=== PATIENT | male | born 1965 | race Caucasian/White ===

== ENCOUNTER → 2021-02-06 08:32 | Outpatient (CLI) | payer BC, SELFPAY ==
--- NOTE | 2021-02-06 08:33 | DI.RAD.S_ITS ---
PROCEDURE: XR LUMBAR SPINE MIN 4V INDICATIONS: dorsalgia TECHNIQUE: 5 views of the lumbar spine acquired, including flexion and extension views. COMPARISON: [facility], MR, L-SPINE WITHOUT CONTRAST, 10/12/2008, 12:06. FINDINGS: Bones: 5 nonrib-bearing vertebrae are present. Trace multilevel retrolisthesis. Multilevel disc degeneration, most notably and moderate at the L5-S1 level. Mild L4-L5 and L5-S1 facet joint arthropathy.. No vertebral body compression fractures. No suspicious bony lesions. Soft tissues: Overlying bowel gas pattern is normal. No suspicious soft tissue calcifications. IMPRESSION: Multilevel spondylosis. Dictated by: Jose E Min RRTriston Interpreted: Eugenio Crawford MD on 02/06/2021 at 10:23 Transcribed by: ANNI on 02/06/2021 at 10:24 Approved by: Eugenio Crawford M.D. on 02/06/2021 at 15:41
== END ==
PROVIDERS: PCP Internal Medicine; Referring Provider Physical Medicine & Rehabilitation; Visit Provider Physical Medicine & Rehabilitation
DX: M54.9 Dorsalgia, unspecified (principal); M47.816 Spondylosis without myelopathy or radiculopathy, lumbar region; M47.817 Spondylosis without myelopathy or radiculopathy, lumbosacral region
CPT/HCPCS: 72110

== ENCOUNTER → 2021-02-13 09:20 | Outpatient (CLI) | payer BC, SELFPAY ==
--- NOTE | 2021-02-13 09:21 | DI.MRI.S_ITS ---
PROCEDURE: MR LUMBAR SPINE WO CON INDICATIONS: Right L5 radiculopathy post laminectomy syndrome TECHNIQUE: Noncontrast sagittal T1 spin echo and T2 fast echo, sagittal STIR, axial T1 and T2 fast spin echo through the lumbar spine. In cases with scoliosis, additional coronal T2 fast spin echo may be performed. COMPARISON: [facility], CR, XR LUMBAR SPINE MIN 4V, 02/06/2021, 8:30. [facility], MR, L-SPINE WITHOUT CONTRAST, 10/12/2008, 12:06. FINDINGS: Image quality: Excellent. Alignment and Curvature: There is normal bony alignment. Bone Marrow: Reactive endplate changes noted adjacent to the L2-L3 disc. No acute vertebral body compression fractures. Spinal Cord: Conus medullaris terminates at the L1 level. Visualized cord demonstrates normal signal and size. Paraspinous Soft Tissues: No paravertebral masses. T12-L1: Loss of disc signal and height. Mild, diffuse disc bulge. Mild narrowing of the central canal. No neural foraminal narrowing. Fissure noted in the posterior annulus. L1-L2: Normal appearance. L2-L3: Loss of disc signal and height. Moderate, diffuse disc bulge. Mild narrowing of the central canal. Mild bilateral neural foraminal narrowing. No neural compression. L3-L4: Loss of disc signal and slight loss of disc height. Mild to moderate diffuse disc bulge. Mild narrowing of the central canal. Mild bilateral neural foraminal narrowing. No neural compression. L4-L5: Disc has a normal appearance. Mild bilateral facet hypertrophy. No central stenosis. No neural foraminal narrowing. No neural compression. L5-S1: Status post right laminotomy. Loss of disc signal. Mild, diffuse disc bulge. Mild bilateral facet hypertrophy. No central stenosis. Mild bilateral neural foraminal narrowing. Fissure noted in the posterior annulus. No neural compression. IMPRESSION: 1. Multilevel degenerative disc disease. 2. Multilevel facet arthropathy. 3. No severe central canal narrowing. 4. No severe neural foraminal narrowing. 5. No neural compression. 6. T12-L1 and L5-S1 disc annulus fissures. 7. Postsurgical changes. Dictated by: Cassie Jesus MD, PhD on 02/13/2021 at 13:57 Approved by: Cassie Jesus MD, PhD on 02/13/2021 at 14:01
== END ==
PROVIDERS: PCP Internal Medicine; Referring Provider Physical Medicine & Rehabilitation; Visit Provider Physical Medicine & Rehabilitation
DX: M96.1 Postlaminectomy syndrome, not elsewhere classified (principal); M51.16 Intervertebral disc disorders with radiculopathy, lumbar region; M51.17 Intervertebral disc disorders with radiculopathy, lumbosacral region; M47.26 Other spondylosis with radiculopathy, lumbar region; M47.27 Other spondylosis with radiculopathy, lumbosacral region
CPT/HCPCS: 72148

== ENCOUNTER → 2021-03-27 11:08 | Outpatient (CLI) | payer BC, SELFPAY ==
[2021-03-27 13:32] LABS: COVID19 -Nasal RAPID Negative (Negative)
== END ==
PROVIDERS: PCP Internal Medicine; Visit Provider Physical Medicine & Rehabilitation
DX: Z20.822 Contact with and (suspected) exposure to COVID-19 (principal)
CPT/HCPCS: 87635; C9803

== ENCOUNTER 2021-03-28 09:06 | Outpatient (CLI) | payer BC, SELFPAY ==
[2021-03-28] VITALS (8 sets, daily range): BP systolic 109–125; BP diastolic 60–75; PULSE 83–95; RESP 15–24; TEMP 37.1; O2SAT 97–99
--- NOTE | 2021-03-28 09:07 | DI.RAD.S_ITS ---
PROCEDURE: PAIN L/S TRANSFORAMINAL INJECT INDICATIONS: SPONDYLOSIS COMPARISON: None. FINDINGS: Fluoroscopic spot filming was performed to verify placement of spinal needles at the right L5-S1 level(s), as labeled on the films. Appropriate location(s) of the needle tip(s) was confirmed by injection of iodinated contrast. IMPRESSION: Right L5-S1 needle placement and contrast injection. Dictated by: Pilar Nieves M.D. on 03/28/2021 at 11:28 Approved by: Pilar Nieves M.D. on 03/28/2021 at 11:28
[2021-03-28] MEDS: BETAMETHASONE 30 MG/5 ML MDV 12 MG INJ (10:10)
[2021-03-28] MEDS: MIDAZOLAM 5 MG/5 ML VIAL IV (10:10)
[2021-03-28] MEDS: fentaNYL 100 MCG/2 ML INJ 50 MCG IV (10:10)
[2021-03-28] MEDS: IOPAMIDOL 15 ML VIAL 3 ML INJ (10:16)
[2021-03-28] MEDS: DEXAMETHASONE 10 MG/ML VIAL 20 MG INJ (10:16)
[2021-03-28] MEDS: BUPIVACAINE 0.25% (PF) VIAL 5 ML SUBCUT (10:17)
--- NOTE | 2021-03-28 10:26 | P.PCN_ITS ---
Date/Time/Diagnoses Date of procedure: 03/28/21 Time of procedure: 10:26 Pre-procedure diagnosis: FORAMINAL STENOSIS WITH LE SYMPTOMS Post-procedure diagnosis: same Procedure Notes Procedure: 1. FLUOROSCOPICALLY GUIDED CONTRAST CONTROLLED TRANSFORAMINAL EPIDURAL STEROID INJECTION - RIGHT L5/S1 TFESI Indications: Mario is referred by Dr. Guillory for treatment of Foraminal Stenosis with Right LE Symptoms Physician: Landon Recinos Total Fluoroscopy time (seconds): 8 Total sedation minutes: 10 Complications: none Procedure in detail & Post-procedure care: FINDINGS Foraminal Nerve Root Compression secondary to disc disease and facet hypertrophy DESCRIPTION OF PROCEDURE Following review of allergy and review of potential side effects and complications, including, but not necessarily limited to, infection, allergic reaction, local tissue breakdown, stroke, temporary or permanent nerve injury, paralysis, and possible , the patient indicated that the patient understood and agreed to proceed. An informed consent document was signed by the patient, witnessed by a nurse, and placed in the patient's chart. Additionally, other treatment options including medications, modalities, and physical therapy were reviewed with the patient. After review of previous anaesthesic history and IV conscious sedation the patient was deemed safe to proceed with today?s procedure with IV conscious sedation as ASA class II designation. Safety time-out was performed to confirm patient ID, procedure to be performed and site of procedure. IV sedation was accomplished with a combination of 3mg of Versed and 50mcg of Fentanyl was administered by the RN after DO order, titrated to patient comfort during the course of the procedure while the patient remained responsive to all verbal commands In the prone position following sterile prep and drape of the lumbar region, the right L5/S1 posterior neuroforamen was identified fluoroscopically. The skin was anesthetized via a 25-gauge 1.5-inch needle with 1% lidocaine solution. At this point, a 25-gauge 3.5-inch spinal needle was atraumatically introduced and advanced under fluoroscopic guidance through the posterior right L5/S1 neuroforamen to approximately the anterior aspect of the canal. Depth was confirmed on lateral view. Following negative aspiration, injection of approximately 1.5cc of Isovue 200 under live fluoroscopy in the AP view confirmed excellent flow along the nerve root, into the epidural space without vascular or intrathecal uptake observed Radiological data, including multiple fluoroscopic views of the lumbosacral spine, reveal a spinal needle at the right L5/S1 posterior neuroforamen. Subsequent views show flow of contrast material flowing superiorly and inferiorly along the nerve root confirming epidural flow. Subsequently, a test dose of 1.5 cc of 1% lidocaine solution was administered and patient was observed for two minutes for signs or symptoms of complications, including abdominal pain, shortness of breath, bilateral upper or lower extremity weakness, nausea and vomiting, prior to steroid injection. At this point, a total of 3cc or 20mg of dexamethasone and 12mg of betamethasone was injected without incident. The procedure tolerated the procedure well without signs or symptoms of complications prior to transfer to the recovery area continued monitoring without incident. The patient was then transferred to the recovery area where they were observed for an appropriate time after the injection. The patient reported a VAS score of 7 prior to the procedure and a post- procedure VAS of 0. POST OP INSTRUCTIONS The patient was provided a Pain Log to continue to record their response to the target-specific procedure prior to follow-up visit with their referring physician. Additionally, specific post-injection care instructions and a contact number to our office were provided if concerns arise regarding possible complications associated with the procedure are suspected.
== END 2021-03-28 10:45 | disposition home or self-care (01) ==
LOC: RAD 09:07
PROVIDERS: PCP Internal Medicine; Referring Provider Physical Medicine & Rehabilitation; Visit Provider Physical Medicine & Rehabilitation
DX: M48.07 Spinal stenosis, lumbosacral region (principal); M51.17 Intervertebral disc disorders with radiculopathy, lumbosacral region
CPT/HCPCS: 64483; 99152; J0702; J1100; J2250; J3010

== ENCOUNTER → 2021-07-10 10:41 | Outpatient (CLI) | payer BC, SELFPAY ==
[2021-07-10 13:50] LABS: COVID19 -Nasal RAPID Negative (Negative)
== END ==
PROVIDERS: PCP Internal Medicine; Visit Provider Physical Medicine & Rehabilitation
DX: Z20.822 Contact with and (suspected) exposure to COVID-19 (principal)
CPT/HCPCS: 87635; C9803

== ENCOUNTER 2021-07-11 09:57 | Outpatient (CLI) | payer BC, SELFPAY ==
[2021-07-11] VITALS (8 sets, daily range): BP systolic 110–143; BP diastolic 58–82; PULSE 62–87; RESP 13–23; TEMP 36.5; O2SAT 96–100
--- NOTE | 2021-07-11 09:59 | DI.RAD.S_ITS ---
PROCEDURE: PAIN L/SI FACET INJ/BLK 1STL INDICATIONS: SPONDYLOSIS COMPARISON: [facility], , PAIN L/S TRANSFORAMINAL INJECT, 03/28/2021, 10:15. FINDINGS: Fluoroscopic spot filming was performed to verify placement of spinal needles on the right at the L4-L5 and L5-S1 levels, as labeled on the films. Appropriate location(s) of the needle tip(s) was confirmed by injection of iodinated contrast. IMPRESSION: Intraprocedural examination within normal limits. Dictated by: Trevor Lora M.D. on 07/11/2021 at 10:25 Approved by: Trevor Lora M.D. on 07/11/2021 at 10:26
[2021-07-11] MEDS: MIDAZOLAM 5 MG/5 ML VIAL IV (10:52)
[2021-07-11] MEDS: fentaNYL 100 MCG/2 ML INJ (10:52)
[2021-07-11] MEDS: BETAMETHASONE 30 MG/5 ML MDV (10:57)
[2021-07-11] MEDS: IOPAMIDOL 15 ML VIAL INJ (10:57)
[2021-07-11] MEDS: BUPIVACAINE 0.5% (PF) VIAL 30 ML (10:57)
--- NOTE | 2021-07-11 11:05 | P.PCN_ITS ---
Date/Time/Diagnoses Date of procedure: 07/11/21 Time of procedure: 11:05 Pre-procedure diagnosis: 1. FACET ARTHROPATHY, 2. AXIAL LBP, 3. MULTILEVEL DDD Post-procedure diagnosis: same Procedure Notes Procedure: 1. FLUOROSCOPICALLY GUIDED CONTRAST CONTROLLED FACET JOINT INJECTIONS RIGHT L4/5, L5/S1 Indications: Mario is referred by Dr. Guillory for treatment of Axial LBP Physician: Landon Recinos Total Fluoroscopy time (seconds): 4 Total sedation minutes: 9 Complications: none Procedure in detail & Post-procedure care: FINDINGS Multilevel Facet Arthropathy with Clinically significant axial LBP DESCRIPTION OF PROCEDURE Fluoroscopically guided, contrast-controlled right L4/5, L5/S1 facet joint injections. Following review of allergy and review of potential side effects and complications, including, but not necessarily limited to, infection, allergic reaction, local tissue breakdown, stroke, temporary or permanent nerve injury, paralysis, and possible , the patient indicated that the patient understood and agreed to proceed. An informed consent document was signed by the patient, witnessed by a nurse, and placed in the patient's chart. Additionally, other treatment options including medications, modalities, and physical therapy were reviewed with the patient. After review of previous anaesthesic history and IV conscious sedation the patient was deemed safe to proceed with today?s procedure with IV conscious sedation as ASA class II designation. Safety time-out was performed to confirm patient ID, procedure to be performed and site of procedure. IV sedation was accomplished with a combination of 3mg of Versed and 50mcg of Fentanyl was administered by the RN after DO order, titrated to patient comfort during the course of the procedure while the patient remained responsive to all verbal commands. In the prone position, following sterile prep and drape of the lumbar region, the posterior aspect of the right L4/5, L5/S1 facet joints were identified fluoroscopically. The skin was anesthetized via a 25-gauge 1.5-inch needle with 1% lidocaine solution into the corresponding facet joints. At this point, a 22- gauge 3.5-inch spinal needle was atraumatically introduced and advanced under fluoroscopic guidance into the corresponding facet joints. Following negative aspiration, injections of approximately 0.2-cc of Isovue 200 confirmed interarticular placement without vascular uptake. Radiological data, including multiple fluoroscopic views of the lumbosacral spine, reveal a spinal needle at the right L4/5, L5/S1 facet joints. Subsequent views show flow of contrast material both superiorly and inferiorly within the joint space without vascular or intrathecal uptake. At this point, a total of 0.5cc including a mixture of 0.25cc Marcaine and 0.25cc betamethasone was injected without complication into each of the corresponding facet joints. The procedure tolerated the procedure well without signs or symptoms of complications prior to transfer to the recovery area continued monitoring without incident. The patient was then transferred to the recovery area where they were observed for an appropriate period of time after the injection. The patient reported a VAS score of 7 prior to the procedure and a post-procedure VAS of 0. POST OP INSTRUCTIONS The patient was provided a Pain Log to continue to record their response to the target-specific procedure prior to follow-up visit with their referring physician. Additionally, specific post-injection care instructions and a contact number to our office were provided if concerns arise regarding possible complications associated with the procedure are suspected.
== END 2021-07-11 11:24 | disposition home or self-care (01) ==
LOC: RAD 09:58
PROVIDERS: PCP Internal Medicine; Referring Provider Physical Medicine & Rehabilitation; Visit Provider Physical Medicine & Rehabilitation
DX: M47.816 Spondylosis without myelopathy or radiculopathy, lumbar region (principal); M51.36 Other intervertebral disc degeneration, lumbar region; M47.817 Spondylosis without myelopathy or radiculopathy, lumbosacral region; M51.37 Other intervertebral disc degeneration, lumbosacral region
CPT/HCPCS: 64493; 64494; J0702; J2250; J3010

== ENCOUNTER → 2021-07-25 16:15 | Outpatient (CLI) | payer BC, SELFPAY ==
[2021-07-25 17:34] LABS: Add Manual Diff / Slide Review NO; Basophils Absolute Auto 100 /uL (0-100); Basophils Percent Auto 0.6 % (0-2); Eosinophils Absolute Auto 100 /uL (0-450); Eosinophils Percent Auto 0.7 % (2-4); Hematocrit 42.4 % (41-53); Hemoglobin 14.9 g/dL (13.5-17.5); Lymphocytes Absolute Auto 3000 /uL (1100-4500); Lymphocytes Percent Auto 33.9 % (25-40); Mean Corpuscular HGB Conc 35.3 % (30-36); Mean Corpuscular Volume 87.9 fL (80-100); Monocytes Absolute Auto 600 /uL (0-900); Monocytes Percent Auto 6.9 % (3-14); Neutrophils Absolute Auto 5200 /uL (1500-7000); Neutrophils Percent Auto 57.9 % (50-75); Platelet Count 203 X10^3/uL (150-400); Red Blood Cell Count 4.82 X10^6/uL (4.5-5.9); Red Cell Distribution Width 13.4 % (11.6-14.8); White Blood Cell Count 8.9 X10^3/uL (4.5-11.0)
[2021-07-25 17:49] LABS: Alanine Aminotransferase 22 IU/L (<50); Albumin 4.6 g/dL (3.5-5.0); Albumin Globulin Ratio 1.8 (1.0-2.8); Alkaline Phosphatase 44 U/L (38-126); Aspartate Aminotransferase 22 IU/L (17-59); BUN Creatinine Ratio 16.4 (6-22); Bilirubin Total 0.9 mg/dL (0.2-1.3); Blood Urea Nitrogen 20 mg/dL (9-20); Calcium 9.5 mg/dL (8.4-10.2); Carbon Dioxide 28 mmol/L (22-32); Chloride 105 mmol/L (98-107); Estimated Glomerular Filt Rate > 60.0 mL/min (>60); Globulin 2.6 g/dL (1.7-4.1); Glucose 97 mg/dL (70-100); HEMOLYSIS < 15 (0-50); Potassium 3.7 mmol/L (3.4-5.1); Sodium 140 mmol/L (137-145); Total Protein 7.2 g/dL (6.3-8.2)
== END ==
PROVIDERS: PCP Internal Medicine; Referring Provider Podiatrist; Visit Provider Podiatrist
DX: Z01.818 Encounter for other preprocedural examination (principal); Z01.812 Encounter for preprocedural laboratory examination
CPT/HCPCS: 36415; 80053; 85025; 93005; 93010

== ENCOUNTER → 2021-09-18 11:31 | Outpatient (CLI) | payer BC, SELFPAY ==
[2021-09-18 14:53] LABS: COVID19 -Nasal RAPID Negative (Negative)
== END ==
PROVIDERS: PCP Internal Medicine; Visit Provider Physical Medicine & Rehabilitation
DX: Z20.822 Contact with and (suspected) exposure to COVID-19 (principal)
CPT/HCPCS: 87635; C9803

== ENCOUNTER 2021-09-19 08:21 | Outpatient (CLI) | payer BC, SELFPAY ==
[2021-09-19] VITALS (9 sets, daily range): BP systolic 112–147; BP diastolic 67–85; PULSE 70–92; RESP 12–20; TEMP 36.6; O2SAT 95–100
--- NOTE | 2021-09-19 08:22 | DI.RAD.S_ITS ---
PROCEDURE: PAIN L/S FACET INJ/BLK 1ST [place] COMPARISON: [facility], , PAIN L/SI FACET INJ/BLK 1STL, 07/11/2021, 11:57. INDICATIONS: Spondylosis FINDINGS: Fluoroscopic spot filming was performed to verify placement of spinal needles on both sides at the L4, L5, and S1 levels, as labeled on the films. Appropriate location of the needle tips was confirmed by injection of iodinated contrast. IMPRESSION: Intraprocedural examination within normal limits. Dictated by: Trevor Lora M.D. on 09/19/2021 at 11:55 Approved by: Trevor Lora M.D. on 09/19/2021 at 11:55
[2021-09-19] MEDS: BUPIVACAINE 0.5% (PF) VIAL 5 ML INJ (09:12)
[2021-09-19] MEDS: IOPAMIDOL 15 ML VIAL 3 ML INJ (09:12)
[2021-09-19] MEDS: LIDOCAINE 1% 20 ML (09:12)
[2021-09-19] MEDS: MIDAZOLAM 2 MG/2 ML VIAL 4 MG (09:15)
[2021-09-19] MEDS: fentaNYL 100 MCG/2 ML INJ (09:19)
--- NOTE | 2021-09-19 09:25 | P.PCN_ITS ---
Date/Time/Diagnoses Date of procedure: 09/19/21 Time of procedure: 09:25 Pre-procedure diagnosis: 1. FACET ARTHROPATHY Post-procedure diagnosis: same Procedure Notes Procedure: 1. BILATERAL- L4, L5 and S1 DIAGNOSTIC MB BLOCKS with LA Anesthetic Indications: Mario is referred by Dr. Guillory for treatment of Bilateral Axial LBP. Physician: Landon Recinos Total Fluoroscopy time (seconds): 13 Total sedation minutes: 11 Complications: none Procedure in detail & Post-procedure care: DESCRIPTION OF PROCEDURE Fluoroscopically guided, contrast-controlled bilateral L4, L5 and S1 medial branch blocks with 0.5cc of 0.5% Marcaine. Following review of allergy and review of potential side effects and complications, including, but not necessarily limited to, infection, allergic reaction, local tissue breakdown, nerve injury, paralysis, stroke and possible , the patient indicated that the patient understood and agreed to proceed. An informed consent document was signed by the patient, witnessed by a nurse, and placed in the patient's chart. After review of previous anaesthesic history and IV conscious sedation the patient was deemed safe to proceed with today's procedure with IV conscious se dation as ASA class II designation. Safety time-out was performed to confirm patient ID, procedure to be performed and site of procedure. IV sedation was accomplished with a combination of 4mg of Versed and 100mcg of Fentanyl was administered by the RN after DO order, titrated to patient comfort during the course of the procedure while the patient remained responsive to all verbal commands In the prone position, following sterile prep and drape of the lumbar region, the right L4, L5 and S1 anatomical location of the medial branch of the dorsal ramus was identified fluoroscopically. Subsequently an anesthetic skin wheal using 1% lidocaine solution was initiated at each of the anatomical spots. Subsequently then a 22-gauge 3.5-inch spinal needle was atraumatically introduced and advanced under fluoroscopic guidance at each of the corresponding sites at the right L4, L5 and S1 MB. After negative aspiration, 0.2cc of Isovue 200 was injected, confirming placement without vascular or intrathecal uptake. Subsequently then 0.5cc of 0.5% Marcaine solution was injected at each of the corresponding sites at the right L4, L5 and S1 medial branch locations. The identical procedure was replicated on the left. The patient tolerated the procedure well without signs or symptoms of complications prior to transfer to the recovery area continued monitoring without incident. Post-procedure, the patient was monitored initiating provocative activities to measure the amount of relief from block of the facetogenic pain. The patient reported a VAS of 7 prior to the procedure and a post-procedure VAS of 1. It has been a pleasure to assist in the diagnostic and therapeutic care of your patient. POST OP INSTRUCTIONS The patient was provided with a Pain Log to complete over the next several hours and subsequent days prior to the patient's follow up with the ordering physician. If the patient has small wind energy installer relief to the solution applied, then they may be a candidate for medial branch rhizotomy. The patient is aware, was provided, once again, with a Pain Log and will follow up with the referring physician for review and clinical correlation
--- NOTE | 2021-09-19 09:55 | P.PCN_ITS ---
Date/Time/Diagnoses Date of procedure: 09/19/21 Time of procedure: 09:55 Pre-procedure diagnosis: 1. FACET ARTHROPATHY 2. AXIAL NECK PAIN Post-procedure diagnosis: same Procedure Notes Procedure: 1. FLUOROSCOPICALLY GUIDED, CONTRAST-CONTROLLED RIGHT C4/5, C5/6 AND C6/7 FACET JOINT INJECTIONS WITH CONSCIOUS SEDATION. Indications: is referred by for treatment of Axial Neck Pain Physician: Landon Recinos Total Fluoroscopy time (seconds): 12 Total sedation minutes: 12 Complications: none Procedure in detail & Post-procedure care: DESCRIPTION OF PROCEDURE Fluoroscopically guided, contrast-controlled right C5/6 and C6/7 facet joint injections with conscious sedation. Following review of allergy and review of potential side effects and complications, including, but not necessarily limited to, infection, allergic reaction, local tissue breakdown, stroke, temporary or permanent nerve injury and paralysis, the patient indicated that the patient understood and agreed to proceed. An informed consent document was signed by the patient, witnessed by a nurse, and placed in the patient's chart. Additionally, other treatment options including medications, modalities, and physical therapy were reviewed with the patient. After review of previous anaesthesic history and IV conscious sedation the patient was deemed safe to proceed with today?s procedure with IV conscious sedation as ASA class II designation. Safety time-out was performed to confirm patient ID, procedure to be performed and site of procedure. IV sedation was accomplished with a combination of 2mg of Versed and 50mcg of Fentanyl was administered by the RN after DO order, titrated to patient comfort during the course of the procedure while the patient remained responsive to all verbal commands In the prone position, following sterile prep and drape of the cervical spine region, the posterior aspect of the right C5/6 and C6/7 facet joints were identified fluoroscopically. The skin was anesthetized via a 25-gauge 1.5-inch needle with 1% lidocaine solution into the corresponding facet joints. At this point, a 25-gauge 2.5-inch spinal needle was atraumatically introduced and advanced under fluoroscopic guidance into the corresponding facet joints. Following negative aspiration, injections of approximately 0.2-cc of Isovue 200 confirmed interarticular placement without vascular uptake. At this point, a total of 1 cc including 0.5 cc or 5 mg of dexamethasone combined with 0.5 cc of 1% lidocaine solution was injected without complication into each of the corresponding facet joints. The procedure tolerated the procedure well without signs or symptoms of complications prior to transfer to the recovery area continued monitoring without incident. The patient was then transferred to the recovery area where they were observed for an appropriate period of time after the injection. The patient reported a VAS score of 7 prior to the procedure and a post- procedure VAS of 0. POST OP INSTRUCTIONS They were provided a Pain Log to continue to record their response to the target-specific procedure prior to their follow-up visit with their referring physician. Additionally, specific post-injection care instructions and a contact number to our office were provided if concerns arise regarding possible complications associated with the procedure are suspected.
== END 2021-09-19 10:00 | disposition home or self-care (01) ==
LOC: RAD 08:22
PROVIDERS: PCP Internal Medicine; Referring Provider Physical Medicine & Rehabilitation; Visit Provider Physical Medicine & Rehabilitation
DX: M47.816 Spondylosis without myelopathy or radiculopathy, lumbar region (principal); M47.817 Spondylosis without myelopathy or radiculopathy, lumbosacral region
CPT/HCPCS: 64493; 64494; 99152; J2250; J3010

== ENCOUNTER 2022-12-15 23:04 | Emergency (ER) | payer OTHER, SELFPAY ==
[2022-12-15 23:09] VITALS: BP 189/94; PULSE 78; RESP 17; TEMP 36.6; O2SAT 99; BMI 27.3
[2022-12-16] VITALS (7 sets, daily range): BP systolic 126–133; BP diastolic 73–78; PULSE 75–89; RESP 18; O2SAT 95–98
--- NOTE | 2022-12-16 01:58 | ED_ITS ---
HPI - Back Pain/Injury <Cammy Casas MD - Last Filed: 12/23/22 06:16> General Chief Complaint: Back Pain/Injury Stated Complaint: Right side [place] Time Seen by Provider: 12/16/22 00:56 Source: patient History of Present Illness HPI Narrative: 57-year-old gentleman with a history of hypertension and chronic low back pain. Had surgery about 3 years ago with an L4-5 many diskectomy that did not seem to significantly alleviate his pain. Since he is seen Dr. Parson, physiatry, for epidural injections and has not found this to be particularly effective. He occasionally uses methocarbamol for back spasm. About a week ago he describes bending over and having acute pain in the lumbar area radiating down his right leg. Over the ensuing week the pain has gotten significantly worse to the point that he is unable to find any position that is comfortable, standing sitting laying bending. He is noticing increasing paresthesias down the back of his leg right lateral calf and his 4th and 5th toes. In the last 48 hours he is noticing increasing weakness in the leg although he does not report that it feels that it is going to give out on him. Has not had any bowel or bladder symptoms. Does not have a history of IV drug use. Last instrumentation of the spine was over a year ago. He reports that there is some midline tenderness over the L4-5 area but has not noticed any skin changes. No recent fevers, cough, chills, abdominal pain, vomiting or diarrhea. He has no flank pain or dysuria. Related Data Home Medications Medication Instructions Recorded Confirmed amlodipine 5 mg tablet 5 mg PO DAILY 02/06/21 05/15/21 hydrochlorothiazide 25 mg tablet 25 mg PO DAILY 02/06/21 05/15/21 lansoprazole 15 mg capsule,delayed 15 mg PO DAILY 02/06/21 05/15/21 release loratadine 10 mg tablet (Allergy 10 mg PO DAILY 02/06/21 05/15/21 Relief (loratadine)) losartan 100 mg tablet 100 mg PO DAILY 02/06/21 05/15/21 montelukast 10 mg tablet 10 mg PO DAILY 02/06/21 05/15/21 ibuprofen 200 mg capsule 200 mg PO Q6H PRN 09/11/21 Previous Rx's Medication Instructions Recorded diazepam 10 mg tablet (Valium) 10 mg PO ONCE 1-2 prior to MRI and 09/11/21 for possible steroid flare #10 tabs diazepam 5 mg tablet (Valium) 5 mg PO BID-QID PRN muscle spasm 12/16/22 #10 tabs gabapentin 300 mg capsule 300 mg PO BEDTIME #21 caps 12/16/22 hydrocodone 5 mg-acetaminophen 325 1 tab PO Q4-6H PRN pain #20 tabs 12/16/22 mg tablet ketorolac 10 mg tablet 10 mg PO Q6H PRN pain #20 tabs 12/16/22 methylprednisolone 4 mg tablets in See Rx Instructions PO .COMPLEX 12/16/22 a dose pack (Medrol (Tad)) #21 ea ondansetron 4 mg disintegrating 4 mg PO TID-QID PRN nausea and 12/16/22 tablet vomiting #10 tabs Allergies Allergy/AdvReac Type Severity Reaction Status Date / Time No Known Drug Allergies Allergy Verified 09/11/21 12:11 Review of Systems <Cammy Casas MD - Last Filed: 12/23/22 06:16> Review of Systems Narrative: Pertinent positive and negative findings as per HPI Patient History <Cammy Casas MD - Last Filed: 12/23/22 06:16> Medical History Facet arthropathy, lumbar Herniated nucleus pulposus, L5-S1, right Post-laminectomy syndrome Surgical History H/O hernia repair S/P scrotal varicocelectomy Family History Father Diabetes mellitus Mother Cancer Diabetes mellitus Grandmother Congestive heart failure Social History Smoking Status: Never smoker Smoking Status: Never smoker alcohol intake frequency: a few times a month Substance Use Type: does not use Exam <Cammy Casas MD - Last Filed: 12/23/22 06:16> Initial Vital Signs Initial Vital Signs: Vital Signs Temperature 98 F 12/15/22 23:09 Pulse Rate 78 12/15/22 23:09 Respiratory Rate 17 12/15/22 23:09 Blood Pressure 189/94 H 12/15/22 23:09 Pulse Oximetry 99 12/15/22 23:09 Oxygen Delivery Method Room Air 12/15/22 23:09 General: In obvious distress, unable to find a comfortable position on the bed. Able to give a complete and coherent history. Well-nourished well-developed HEENT: Moist mucous membranes, normal sclera with reactive pupils, Respiratory: Lungs are clear to auscultation, no wheezing no rales no rhonchi. Full and symmetrical air movement Cardiac: Regular rate and rhythm no murmurs no bruits Abdomen: Soft, nontender, good bowel tones, no flank pain Spine: He does have some point tenderness around L5 and prior surgical incision. There is some slight fullness but no redness or drainage. No abrasion. Skin: Warm and dry, no rashes Neurologic: Decreased sensation along the buttock posterior thigh right lateral calf and right 4th and 5th toes. He actually is hyperreflexic patella on the right with normal ankle reflexes. No skin changes down the leg. Extremities: No trauma, well perfused Psych: Cooperative, appropriate insight and affect <Asa Maciel DO - Last Filed: 12/16/22 10:29> Initial Vital Signs Initial Vital Signs: Vital Signs Temperature 98 F 12/15/22 23:09 Pulse Rate 78 12/15/22 23:09 Respiratory Rate 17 12/15/22 23:09 Blood Pressure 189/94 H 12/15/22 23:09 Pulse Oximetry 99 12/15/22 23:09 Oxygen Delivery Method Room Air 12/15/22 23:09 Course <Cammy Casas MD - Last Filed: 12/23/22 06:16> Orders Ordered: Discontinued Medications Dexamethasone (Dexamethasone 10 Mg/Ml Vial) 10 mg IV NOW ONE Stop: 12/16/22 02:16 Last Admin: 12/16/22 02:51 Dose: 10 mg Documented By: VITOR Gabapentin (Gabapentin 300 Mg Capsule) 300 mg PO NOW ONE Stop: 12/16/22 09:47 Last Admin: 12/16/22 10:15 Dose: 300 mg Documented By: ABEL Hydromorphone HCl (Hydromorphone 1 Mg Inj) 1 mg IV NOW ONE Stop: 12/16/22 02:16 Last Admin: 12/16/22 02:51 Dose: 1 mg Documented By: VITOR Hydromorphone HCl (Hydromorphone 0.5 Mg Inj) 0.5 mg IV Q15MIN [facility] Stop: 12/18/22 06:56 Last Admin: 12/16/22 07:38 Dose: 0.5 mg Documented By: Admin: 12/16/22 06:58 Dose: 0.5 mg Documented By: EDMOND Ketorolac Tromethamine (Ketorolac 30 Mg/Ml Vial) 15 mg IV NOW ONE Stop: 12/16/22 02:16 Last Admin: 12/16/22 02:52 Dose: 15 mg Documented By: VITOR Vital Signs Vital signs: Vital Signs - 8 hr 12/16/22 06:52 12/16/22 07:33 12/16/22 07:34 Pulse Rate 75 80 Respiratory Rate 18 Blood Pressure 132/78 Pulse Oximetry 98 98 96 Oxygen Delivery Method Room Air Room Air Room Air 12/16/22 07:34 Pulse Rate Respiratory Rate Blood Pressure 133/78 Pulse Oximetry Oxygen Delivery Method <Asa Maciel DO - Last Filed: 12/16/22 10:29> Orders Ordered: Discontinued Medications Dexamethasone (Dexamethasone 10 Mg/Ml Vial) 10 mg IV NOW ONE Stop: 12/16/22 02:16 Last Admin: 12/16/22 02:51 Dose: 10 mg Documented By: VITOR Gabapentin (Gabapentin 300 Mg Capsule) 300 mg PO NOW ONE Stop: 12/16/22 09:47 Last Admin: 12/16/22 10:15 Dose: 300 mg Documented By: ABEL Hydromorphone HCl (Hydromorphone 1 Mg Inj) 1 mg IV NOW ONE Stop: 12/16/22 02:16 Last Admin: 12/16/22 02:51 Dose: 1 mg Documented By: VITOR Hydromorphone HCl (Hydromorphone 0.5 Mg Inj) 0.5 mg IV Q15MIN [facility] Stop: 12/18/22 06:56 Last Admin: 12/16/22 07:38 Dose: 0.5 mg Documented By: Admin: 12/16/22 06:58 Dose: 0.5 mg Documented By: EDMOND Ketorolac Tromethamine (Ketorolac 30 Mg/Ml Vial) 15 mg IV NOW ONE Stop: 12/16/22 02:16 Last Admin: 12/16/22 02:52 Dose: 15 mg Documented By: GC Consultations Consultation #1: discussed with Dr. Ford ([facility] installer Ortho). we have reviewed patient's clinical course, history and physical. Discussed MRI and we share the opinion that there is very low likelihood of infectious process given his story, normal vitals, normal inflammatory markers. Recommends close follow up, no need for antibiotics. Typical radiculopathy meds, return precautions. Vital Signs Vital signs: Vital Signs - 8 hr 12/16/22 06:52 12/16/22 07:33 12/16/22 07:34 Pulse Rate 75 80 Respiratory Rate 18 Blood Pressure 132/78 Pulse Oximetry 98 98 96 Oxygen Delivery Method Room Air Room Air Room Air 12/16/22 07:34 Pulse Rate Respiratory Rate Blood Pressure 133/78 Pulse Oximetry Oxygen Delivery Method MDM - Back Pain/Injury <Cammy Casas MD - Last Filed: 12/23/22 06:16> Lab Data 12/16/22 02:20 12/16/22 02:20 Labs: Lab Results 12/16/22 12/16/22 12/16/22 Range/Units 02:20 02:20 02:20 WBC 9.4 (4.5-11.0) X10^3/uL RBC 4.92 (4.5-5.9) X10^6/uL Hgb 15.1 (13.5-17.5) g/dL Hct 43.6 (41-53) % MCV 88.6 (80-100) fL MCH 30.6 (26-34) PG MCHC 34.5 (30-36) % RDW 13.0 (11.6-14.8) % Plt Count 230 (150-400) X10^3/uL Neut % (Auto) 53.9 (50-75) % Lymph % (Auto) 34.9 (25-40) % Wilkes % (Auto) 9.8 (3-14) % Eos % (Auto) 0.9 L (2-4) % Baso % (Auto) 0.5 (0-2) % Neut # (Auto) 5100 (7023-2939) /uL Lymph # (Auto) 3300 (1154-2489) /uL Wilkes # (Auto) 900 (0-900) /uL Eos # (Auto) 100 (0-450) /uL Baso # (Auto) 100 (0-100) /uL ESR 4 (0-15) MM/HR Sodium (137-145) mmol/L Potassium (3.4-5.1) mmol/L Chloride (98-107) mmol/L Carbon Dioxide (22-32) mmol/L BUN (9-20) mg/dL Creatinine (0.66-1.25) mg/dL Estimated GFR (>60) mL/min BUN/Creatinine Ratio (6-22) Glucose (70-100) mg/dL Calcium (8.4-10.2) mg/dL Total Bilirubin (0.2-1.3) mg/dL AST (17-59) IU/L ALT (<50) IU/L Alkaline Phosphatase (38-126) U/L C-Reactive Protein < 0.5 (<1.0) mg/dL Total Protein (6.3-8.2) g/dL Albumin (3.5-5.0) g/dL Globulin (1.7-4.1) g/dL Albumin/Globulin Ratio (1.0-2.8) 12/16/22 Range/Units 02:20 WBC (4.5-11.0) X10^3/uL RBC (4.5-5.9) X10^6/uL Hgb (13.5-17.5) g/dL Hct (41-53) % MCV (80-100) fL MCH (26-34) PG MCHC (30-36) % RDW (11.6-14.8) % Plt Count (150-400) X10^3/uL Neut % (Auto) (50-75) % Lymph % (Auto) (25-40) % Wilkes % (Auto) (3-14) % Eos % (Auto) (2-4) % Baso % (Auto) (0-2) % Neut # (Auto) (7508-9205) /uL Lymph # (Auto) (2877-4558) /uL Wilkes # (Auto) (0-900) /uL Eos # (Auto) (0-450) /uL Baso # (Auto) (0-100) /uL ESR (0-15) MM/HR Sodium 139 (137-145) mmol/L Potassium 3.8 (3.4-5.1) mmol/L Chloride 105 (98-107) mmol/L Carbon Dioxide 24 (22-32) mmol/L BUN 25 H (9-20) mg/dL Creatinine 0.87 (0.66-1.25) mg/dL Estimated GFR > 60 (>60) mL/min BUN/Creatinine Ratio 28.7 H (6-22) Glucose 113 H (70-100) mg/dL Calcium 9.3 (8.4-10.2) mg/dL Total Bilirubin 0.6 (0.2-1.3) mg/dL AST 21 (17-59) IU/L ALT 23 (<50) IU/L Alkaline Phosphatase 63 (38-126) U/L C-Reactive Protein (<1.0) mg/dL Total Protein 7.5 (6.3-8.2) g/dL Albumin 4.6 (3.5-5.0) g/dL Globulin 2.9 (1.7-4.1) g/dL Albumin/Globulin Ratio 1.6 (1.0-2.8) MDM Narrative Medical decision making narrative: CC: Progressive severe back pain with increasing paresthesia and weakness. This is an acute exacerbation of a prior problem with uncertain prognosis Complicating co-morbidities: Prior L5-S1 surgical intervention. Hypertension Data collected from: patient, Medical records reviewed: Physiatry notes and facet injection procedure for low back pain from September of 2021 Differential considered: Sciatica, disc disease with acute either facet neuronal compression or central stenosis, epidural abscess and diskitis are both within the differential. Exam documented above, pertinent findings include: Right side paresthesia and pain significant enough he is unable to get comfortable along with point tenderness at approximately L5 Lab Test results independently reviewed as above. Pertinent findings: CBC is unremarkable with no evidence of leukocytosis Chemistries are reassuring C-reactive protein and sed rate are both at appropriate levels Imaging studies independently reviewed: Consultations: Treatments: 10 mg of Decadron, mg of Dilaudid, 15 mg of Toradol all parenteral are administered. Re-evaluations: Discussion: 57-year-old gentleman with severe low back pain with progressive paresthesia and weakness progressing over the last week. Prior lumbar surgery point tenderness over his lumbar spine and inability to find any comfortable spot are both concerning. Given the progressive neurologic findings in point tenderness over L5 I believe an MRI is indicated. With shared decision-making we opted to have him wait in the emergency department until MRI is available which is going to be approximately 5-6 hours. In the meantime will try and treat some of his pain with steroids, Toradol, Dilaudid and will re-evaluate. Does understand that there will be a change of shift at 7:[address] Maciel will take over his care. <Asa Maciel, - Last Filed: 12/16/22 10:29> Lab Data Labs: Lab Results 12/16/22 12/16/22 12/16/22 Range/Units 02:20 02:20 02:20 WBC 9.4 (4.5-11.0) X10^3/uL RBC 4.92 (4.5-5.9) X10^6/uL Hgb 15.1 (13.5-17.5) g/dL Hct 43.6 (41-53) % MCV 88.6 (80-100) fL MCH 30.6 (26-34) PG MCHC 34.5 (30-36) % RDW 13.0 (11.6-14.8) % Plt Count 230 (150-400) X10^3/uL Neut % (Auto) 53.9 (50-75) % Lymph % (Auto) 34.9 (25-40) % Wilkes % (Auto) 9.8 (3-14) % Eos % (Auto) 0.9 L (2-4) % Baso % (Auto) 0.5 (0-2) % Neut # (Auto) 5100 (5812-2193) /uL Lymph # (Auto) 3300 (4578-1016) /uL Wilkes # (Auto) 900 (0-900) /uL Eos # (Auto) 100 (0-450) /uL Baso # (Auto) 100 (0-100) /uL ESR 4 (0-15) MM/HR Sodium (137-145) mmol/L Potassium (3.4-5.1) mmol/L Chloride (98-107) mmol/L Carbon Dioxide (22-32) mmol/L BUN (9-20) mg/dL Creatinine (0.66-1.25) mg/dL Estimated GFR (>60) mL/min BUN/Creatinine Ratio (6-22) Glucose (70-100) mg/dL Calcium (8.4-10.2) mg/dL Total Bilirubin (0.2-1.3) mg/dL AST (17-59) IU/L ALT (<50) IU/L Alkaline Phosphatase (38-126) U/L C-Reactive Protein < 0.5 (<1.0) mg/dL Total Protein (6.3-8.2) g/dL Albumin (3.5-5.0) g/dL Globulin (1.7-4.1) g/dL Albumin/Globulin Ratio (1.0-2.8) 12/16/22 Range/Units 02:20 WBC (4.5-11.0) X10^3/uL RBC (4.5-5.9) X10^6/uL Hgb (13.5-17.5) g/dL Hct (41-53) % MCV (80-100) fL MCH (26-34) PG MCHC (30-36) % RDW (11.6-14.8) % Plt Count (150-400) X10^3/uL Neut % (Auto) (50-75) % Lymph % (Auto) (25-40) % Wilkes % (Auto) (3-14) % Eos % (Auto) (2-4) % Baso % (Auto) (0-2) % Neut # (Auto) (0570-7449) /uL Lymph # (Auto) (9131-0047) /uL Wilkes # (Auto) (0-900) /uL Eos # (Auto) (0-450) /uL Baso # (Auto) (0-100) /uL ESR (0-15) MM/HR Sodium 139 (137-145) mmol/L Potassium 3.8 (3.4-5.1) mmol/L Chloride 105 (98-107) mmol/L Carbon Dioxide 24 (22-32) mmol/L BUN 25 H (9-20) mg/dL Creatinine 0.87 (0.66-1.25) mg/dL Estimated GFR > 60 (>60) mL/min BUN/Creatinine Ratio 28.7 H (6-22) Glucose 113 H (70-100) mg/dL Calcium 9.3 (8.4-10.2) mg/dL Total Bilirubin 0.6 (0.2-1.3) mg/dL AST 21 (17-59) IU/L ALT 23 (<50) IU/L Alkaline Phosphatase 63 (38-126) U/L C-Reactive Protein (<1.0) mg/dL Total Protein 7.5 (6.3-8.2) g/dL Albumin 4.6 (3.5-5.0) g/dL Globulin 2.9 (1.7-4.1) g/dL Albumin/Globulin Ratio 1.6 (1.0-2.8) MDM Narrative Medical decision making narrative: CC: Progressive severe back pain with increasing paresthesia and weakness. This is an acute exacerbation of a prior problem with uncertain prognosis Complicating co-morbidities: Prior L5-S1 surgical intervention. Hypertension Data collected from: patient, Medical records reviewed: Physiatry notes and facet injection procedure for low back pain from September of 2021 Differential considered: Sciatica, disc disease with acute either facet neuronal compression or central stenosis, epidural abscess and diskitis are both within the differential. Exam documented above, pertinent findings include: Right side paresthesia and pain significant enough he is unable to get comfortable along with point tenderness at approximately L5 Lab Test results independently reviewed as above. Pertinent findings: CBC is unremarkable with no evidence of leukocytosis Chemistries are reassuring C-reactive protein and sed rate are both at appropriate levels Imaging studies independently reviewed: Consultations: discussed with on-call orthopedist, see details above Treatments: 10 mg of Decadron, mg of Dilaudid, 15 mg of Toradol all parenteral are administered. Discussion: 57-year-old gentleman with severe low back pain with progressive paresthesia and weakness progressing over the last week. Prior lumbar surgery point tenderness over his lumbar spine and inability to find any comfortable spot are both concerning. Given the progressive neurologic findings in point tenderness over L5 I believe an MRI is indicated. With shared decision-making we opted to have him wait in the emergency department until MRI is available which is going to be approximately 5-6 hours. In the meantime will try and treat some of his pain with steroids, Toradol, Dilaudid and will re-evaluate. Does understand that there will be a change of shift at 7:[address] Maciel will take over his care. [0700] (Raheem) Patient received in sign out from Dr. Garcia]. I have reviewed the clinical course and performed an independent history and physical exam. Resting comfortably, pain relatively well controlled. He does state that his preferred pharmacy is [facility] MRI demonstrates disc protrusion and S1 root compression but no evidence of cauda equina, epidural abscess or hematoma. As discussed above there is an area of acute edema and inflammation noted on the right side of L5 consistent with either acute degenerative MODIC changes or infection but no drainable abscess. Pain is well-controlled, there is no indication for hospitalization or need for intervention. Questions answered to patient's satisfaction. Return precautions discussed including worsening pain, extremity weakness, loss of control of bowel or bladder or other concerning symptoms. Prescription sent to his pharmacy of choice. Discharge Plan Departure Patient Disposition: Home Clinical Impression: Acute back pain with radiculopathy Instructions: DI for Lumbar Radiculopathy Activity Restrictions/Additional Instructions: *You have been diagnosed with [ Acute lumbar radiculopathy ] *What to do: *Please continue to take your regular medications as directed. [x ] New medication prescriptions sent to your pharmacy: [ [facility] in [place]] [ ] New medication written as a paper prescription [ ] No new medications given *Please follow up with Dr. Angeles of [facility], call tomorrow for an appointment. Let them know you were seen in the Emergency Department and that we ask that you be seen in follow up. We will electronically transmit a r ecord of today's note. I spoke with his partner Dr. Ford today *Return to Emergency Department if you should have any new, worsening or concerning symptoms, such as [fever greater than 101 F, shaking chills, worsening pain, persistent vomiting, loss of control of bowel or bladder, leg weakness or other bothersome symptoms] You have been prescribed a short course of narcotic medications. These are potentially dangerous and addictive medications that should be used carefully. While on these medications you cannot drive or operate heavy machinery. Additionally, you cannot sign legal documents or perform any duties such as this. 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 Please understand that we cannot provide further refills of narcotics or controlled substances through the ED and your pain management will need to be through your Primary Care Provider Prescriptions: New hydrocodone-acetaminophen 5-325 mg tablet 1 tab PO Q4-6H PRN (Reason: pain) Qty: 20 0RF ketorolac 10 mg tablet 10 mg PO Q6H PRN (Reason: pain) Qty: 20 0RF gabapentin 300 mg capsule 300 mg PO BEDTIME Qty: 21 0RF methylprednisolone [Medrol (Tad)] 4 mg tablets,dose pack See Rx Instructions .ROUTE .COMPLEX Qty: 21 0RF Rx Instructions: orally per package directions ondansetron 4 mg tablet,disintegrating 4 mg PO TID-QID PRN (Reason: nausea and vomiting) Qty: 10 0RF diazepam [Valium] 5 mg tablet 5 mg PO BID-QID PRN (Reason: muscle spasm) Qty: 10 0RF No Action loratadine [Allergy Relief (loratadine)] 10 mg tablet 10 mg PO DAILY losartan 100 mg tablet 100 mg PO DAILY hydrochlorothiazide 25 mg tablet 25 mg PO DAILY amlodipine 5 mg tablet 5 mg PO DAILY montelukast 10 mg tablet 10 mg PO DAILY lansoprazole 15 mg capsule,delayed release(DR/EC) 15 mg PO DAILY ibuprofen 200 mg capsule 200 mg PO Q6H PRN diazepam [Valium] 10 mg tablet 10 mg PO ONCE MDD 3 tabs Qty: 10 0RF Referrals: Landon Guillory MD [Primary Care Provider] - Varsha Angeles MD [Physician] - Stand Alone Forms: Patient Portal/API
[2022-12-16 02:29] LABS: Add Manual Diff / Slide Review NO; Basophils Absolute Auto 100 /uL (0-100); Basophils Percent Auto 0.5 % (0-2); Eosinophils Absolute Auto 100 /uL (0-450); Eosinophils Percent Auto 0.9 % (2-4); Hematocrit 43.6 % (41-53); Hemoglobin 15.1 g/dL (13.5-17.5); Lymphocytes Absolute Auto 3300 /uL (1100-4500); Lymphocytes Percent Auto 34.9 % (25-40); Mean Corpuscular HGB Conc 34.5 % (30-36); Mean Corpuscular Hemoglobin 30.6 PG (26-34); Mean Corpuscular Volume 88.6 fL (80-100); Monocytes Absolute Auto 900 /uL (0-900); Monocytes Percent Auto 9.8 % (3-14); Neutrophils Absolute Auto 5100 /uL (1500-7000); Neutrophils Percent Auto 53.9 % (50-75); Platelet Count 230 X10^3/uL (150-400); Red Blood Cell Count 4.92 X10^6/uL (4.5-5.9); White Blood Cell Count 9.4 X10^3/uL (4.5-11.0)
[2022-12-16 02:41] LABS: Alanine Aminotransferase 23 IU/L (<50); Albumin 4.6 g/dL (3.5-5.0); Albumin Globulin Ratio 1.6 (1.0-2.8); Alkaline Phosphatase 63 U/L (38-126); Aspartate Aminotransferase 21 IU/L (17-59); BUN Creatinine Ratio 28.7 (6-22); Bilirubin Total 0.6 mg/dL (0.2-1.3); Blood Urea Nitrogen 25 mg/dL (9-20); Calcium 9.3 mg/dL (8.4-10.2); Carbon Dioxide 24 mmol/L (22-32); Chloride 105 mmol/L (98-107); Estimated Glomerular Filt Rate > 60 mL/min (>60); Globulin 2.9 g/dL (1.7-4.1); Glucose 113 mg/dL (70-100); HEMOLYSIS < 15 (0-50); Potassium 3.8 mmol/L (3.4-5.1); Sodium 139 mmol/L (137-145); Total Protein 7.5 g/dL (6.3-8.2)
[2022-12-16 02:44] LABS: C-Reactive Protein Quant < 0.5 mg/dL (<1.0)
[2022-12-16 02:46] LABS: Erythrocyte Sedimentation Rate 4 MM/HR (0-15)
[2022-12-16] MEDS: HYDROMORPHONE 1 MG INJ IV (02:51)
[2022-12-16] MEDS: DEXAMETHASONE 10 MG/ML VIAL IV (02:51)
[2022-12-16] MEDS: KETOROLAC 30 MG/ML VIAL 15 MG IV (02:52)
[2022-12-16] MEDS: HYDROMORPHONE 0.5 MG INJ IV ×2 (06:58→07:38)
--- NOTE | 2022-12-16 08:03 | DI.MRI.S_ITS ---
PROCEDURE: MR LUMBAR SPINE WO/W CON INDICATIONS: R L45 increased numb, weak, tender to touch at L4 TECHNIQUE: Noncontrast sagittal T1 spin echo and T2 fast spin echo, sagittal STIR, axial T1 and T2 fast spin echo through the lumbar spine. In cases with scoliosis, additional coronal T2 fast spin echo may be performed. After the administration of contrast, sagittal and axial T1 spin echo with fat saturation through the lumbar spine. COMPARISON: [facility], , MR LUMBAR SPINE WO CON, 02/13/2021, 9:58. FINDINGS: Image quality: Good Alignment: Trace leftward spinal curvature on coronal images. No spondylolisthesis. Marrow: No displaced fracture. Multilevel mild disc desiccation. There is mild, but probably acute edema at the right superior endplate L5, extending to the right pedicle and right facet joint. There is associated mild enhancement on post gadolinium images. Other areas of Modic changes also present. On post gadolinium images, no suspicious enhancement. Cord: Cord terminates in normal position. Overall normal appearance of the cauda equina nerve roots. Soft tissues: No drainable abscess is identified. No drainable hematoma. There is suspected renal cysts. Specific levels: T12-L1: Small annular fissure and disc bulge. No stenosis. L1-L2: No stenosis. Mild facet arthropathy. L2-L3: Small diffuse disc bulge and annular fissure. Mild facet arthropathy. No stenosis. L3-L4: Mild diffuse disc bulge. Mild facet arthropathy. No stenosis. L4-L5: Mild diffuse disc bulge. [id number] facet arthropathy. Minimal right neural foraminal narrowing. L5-S1: Mild diffuse disc bulge and a moderate superimposed protrusion in the right subarticular recess. This is new compared to 2020. There is displacement of the right S1 nerve root traversing this region. There is superimposed mild to moderate facet arthropathy. The right neural foramen is patent. The left neural foramen is patent. IMPRESSION: Overall mild disc disease and facet arthropathy, progressed compared to 2020. Of note, there is a focal right subarticular protrusion L5-S1 displacing the right S1 nerve root. At the level of L5, acute edema is seen at the superior endplate on the right side, with inflammation and enhancement extending to the right pedicle and facet, possibly acute degenerative Modic changes and/or infection. No drainable abscess at this time. Dictated by: Justin Middleton M.D. on 12/16/2022 at 9:10 Approved by: Justin Middleton M.D. on 12/16/2022 at 9:20
[2022-12-16] MEDS: GABAPENTIN 300 MG CAPSULE PO (10:15)
== END 2022-12-16 10:37 | disposition home or self-care (01) ==
PROVIDERS: Emergency Medicine; Emergency Provider Emergency Medicine; PCP Internal Medicine
DX: M54.16 Radiculopathy, lumbar region (principal)
CPT/HCPCS: 36415; 72158; 80053; 85025; 85651; 86140; 96374; 96375; 96376; 99284; A9579; J1100; J1170; J1885

== ENCOUNTER → 2023-01-01 11:21 | Outpatient (CLI) | payer OTHER, SELFPAY ==
[2023-01-01 12:08] LABS: Add Manual Diff / Slide Review NO; Basophils Absolute Auto 100 /uL (0-100); Basophils Percent Auto 0.8 % (0-2); Eosinophils Absolute Auto 100 /uL (0-450); Lymphocytes Absolute Auto 2400 /uL (1100-4500); Lymphocytes Percent Auto 23.3 % (25-40); Mean Corpuscular HGB Conc 34.9 % (30-36); Mean Corpuscular Hemoglobin 30.7 PG (26-34); Mean Corpuscular Volume 87.9 fL (80-100); Monocytes Absolute Auto 700 /uL (0-900); Monocytes Percent Auto 7.3 % (3-14); Neutrophils Absolute Auto 6900 /uL (1500-7000); Neutrophils Percent Auto 67.6 % (50-75); Platelet Count 225 X10^3/uL (150-400); Red Blood Cell Count 4.89 X10^6/uL (4.5-5.9); Red Cell Distribution Width 13.1 % (11.6-14.8); White Blood Cell Count 10.2 X10^3/uL (4.5-11.0)
[2023-01-01 12:37] LABS: BUN Creatinine Ratio 25.3 (6-22); Blood Urea Nitrogen 23 mg/dL (9-20); Calcium 9.3 mg/dL (8.4-10.2); Carbon Dioxide 26 mmol/L (22-32); Chloride 103 mmol/L (98-107); Estimated Glomerular Filt Rate > 60 mL/min (>60); Glucose 138 mg/dL (70-100); HEMOLYSIS < 15 (0-50); Potassium 3.9 mmol/L (3.4-5.1); Sodium 138 mmol/L (137-145)
[2023-01-02 07:02] LABS: Labcorp Hemoglobin (Hb) A1c 6.3 % (4.8-5.6)
== END ==
PROVIDERS: PCP Internal Medicine; Referring Provider Orthopaedic Surgery Orthopaedic Surgery of the Spine; Visit Provider Orthopaedic Surgery Orthopaedic Surgery of the Spine
DX: Z01.818 Encounter for other preprocedural examination (principal); Z01.812 Encounter for preprocedural laboratory examination; R73.9 Hyperglycemia, unspecified
CPT/HCPCS: 36415; 80048; 83036; 85025; 93005; 93010

== ENCOUNTER → 2023-03-05 15:53 | Outpatient (CLI) | payer OTHER, SELFPAY ==
--- NOTE | 2023-03-05 15:54 | DI.RAD.S_ITS ---
PROCEDURE: XR LUMBAR SPINE MIN 4V INDICATIONS: BACK PAIN TECHNIQUE: 5 views of the lumbar spine were acquired, including bilateral oblique views. COMPARISON: [facility], , XR LUMBAR SPINE MIN 4V, 02/06/2021, 8:30. FINDINGS: Bones: 5 nonrib-bearing vertebrae are present. There is normal bony alignment. Mild degenerative endplate changes throughout lumbar spine is seen. No vertebral body compression fractures. No suspicious bony lesions. Soft tissues: Overlying bowel gas pattern is normal. No suspicious soft tissue calcifications. Oblique images: No pars defects. IMPRESSION: Mild degenerative endplate throughout lumbar spine. No acute compression fracture or spondylolisthesis. No gross pars defects. Dictated by: Arya Remy M.D. on 03/05/2023 at 16:33 Approved by: Arya Remy M.D. on 03/05/2023 at 16:33
== END ==
PROVIDERS: PCP Physician Assistant; Referring Provider Physical Medicine & Rehabilitation; Visit Provider Physical Medicine & Rehabilitation
DX: M47.816 Spondylosis without myelopathy or radiculopathy, lumbar region (principal); M51.27 Other intervertebral disc displacement, lumbosacral region; M96.1 Postlaminectomy syndrome, not elsewhere classified
CPT/HCPCS: 72110

== ENCOUNTER 2023-04-01 08:58 | Inpatient (IN) | payer OTHER, SELFPAY ==
[2023-03-25 09:55] VITALS: BMI 28.0
[2023-04-01] VITALS (12 sets, daily range): BP systolic 121–155; BP diastolic 73–98; PULSE 63–87; RESP 12–18; TEMP 36–36.7; O2SAT 96–100; BMI 28.0
[2023-04-01] MEDS: LACTATED RINGERS 1,000 ML 42 ML IV (09:54)
--- NOTE | 2023-04-01 10:15 | PM.PREOP ---
Pre-operative Note Interval Note History & Physical reviewed/Exam performed by Physician: Yes Changes to H&P: No
[2023-04-01] MEDS: CEFAZOLIN 2 GM/100 ML PREMIX 100 ML IV ×2 (10:50→18:45)
--- NOTE | 2023-04-01 11:10 | SUR.OPER ---
Prone on spine table, head in foam head support, padded chest and pelvic supports, gel pad at knees, lower legs supported by pillows; nipples, genitalia and toes free of pressure, arms secured on foam padded arm boards at <90 degrees abduction. Tape over blanket at thigh secured to table.
[2023-04-01] MEDS: BUPIVACAINE 0.25% W/ EPI 30 ML VIAL INJ (11:16)
[2023-04-01] MEDS: ACETAMINOPHEN IV 1,000 MG/100 ML VIAL 400 MG IV (12:35)
--- NOTE | 2023-04-01 12:58 | PM.OP.1 ---
Operative Date/Time/Diagnoses Date of procedure: 04/01/23 Time of procedure: 11:00 Pre-op diagnosis: 1. L5-S1 post laminectomy syndrome 2. L5-S1 recurrent disc herniation 3. Lumbar radiculopathy Post-op diagnosis: same Procedure & Clinicians Procedure: 1. L5-S1 Postero-lateral and posterior interbody fusion 2. L5-S1 interbody cage placement. 3. L5-S1 decompressive laminectomy with bilateral facetecomies 4. L5-S1 Posterior non-segmental instrumentation 5. [place] of bone marrow from iliac crest 6. Utilization of microsurgical technique and operating microscope Same procedure as scheduled: Yes Indications: Patient has been having chronic back pain and worsening lumbar radiculopathy. Patient has a history of L5-S1 right microdiskectomy with recurrent disc herniation and radiculopathy confirmed on recent MRI. Patient failed multiple conservative management with worsening pain weakness and numbness in his lower extremity. Patient has been having difficulty performing activity of daily living. After discussing risks benefits of treatment options, patient elected proceed with surgery. Surgeon: Varsha Angeles Health Aid: Heriberto White Click Yes if Unassisted: No Anesthesia Type: General Operative Notes Closure Type: primary Specimen(s): none sent Prosthetic devices, grafts, tissues, transplants, or devices: Globus Revolve screws, Rise cage Estimated Blood Loss (mL): 50 Blood products transfused: none Procedure in detail: Patient was seen in the preoperative area. Risks and benefits of the surgery was discussed with the patient. Informed consent was obtained from the patient and placed in the chart. Surgical site was marked. Patient was taken to the operative room. General anesthesia was administered. Prophylactic antibiotic was given to the patient less than 30 min before the incision was made. Patient was placed into a prone position on the Tian table. Patient's back was then prepped and draped in the sterile fashion. Time-out was performed at this time. Using AP and lateral C-arm imaging the interval between L5-S1 was identified and marked on patient's back. A 2 inch incision 2 in from midline was made on the right side first. The fascia was incised in line with skin incision. Globus MARS retractors was placed inside the incision and docked onto the L5 lamina. Using microsurgical technique and operating microscope, a L5 laminectomy and L5-S1 facetectomy was performed using a Kerrison rongeur. The laminectomy and facetectomy was performed in order to decompress patient's cauda equina as well as the nerve roots exiting at the L5-S1 level. The disc space at L5-S1 was identified. And a total diskectomy was performed at L5-S1 level. The endplates were decorticated using a rasp and shaver. The total diskectomy and decortication was performed at L5-S1 level in order to to accomplish a L5-S1 fusion. The local bone from the laminectomy and facetectomy was saved for local bone grafting. After the total diskectomy and decortication was completed, Trifecta bone graft material was combined with local bone that was harvested earlier. At this time, a separate skin is incision was made over the iliac crest. A Jamshidi needle was inserted into the iliac crest through a separate skin incision. 5 cc of bone marrow aspiration was obtained through the separate skin incision using a Jamshidi needle from the iliac crest. The bone marrow aspiration was combined with local bone and the Trifecta bone grafting material. The bone grafting material was placed into the L5-S1 interbody space along with a expandable cage. The cage was expanded to its maximum height using the torque limiting screwdriver. At this time a mirror image incision was made on the left side. The fascia was incised in line with the skin incision. Globus MARS retractor was inserted and docked onto the L5-S1 posterolateral gutter. Using the power drill, posterior-lateral decortication was performed at L5-S1 level until bleeding cortical bone was identified. The remaining bone grafting material was placed into the L4-5 posterior lateral gutter he order to accomplish posterolateral fusion at the L5-S1 level. Using the double C-arm technique, pedicle screws were placed into the L5-S1 pedicles bilaterally. This was done by placing the Jamshidi needle into the pedicles, then placing the guidewires over the Jamshidi needle, and finally placing the cannulated screws over the guidewires bilaterally. After the pedicle screws were placed, 2 titanium rods was locked into the heads of the pedicle screws using locking caps and torque limiting screwdriver. After all the hardware was placed, and confirmed with AP and lateral C-arm imaging, the wound was then irrigated with sterile normal saline and packed with Ray-Popeye gauze for 3 min to accomplish hemostasis. After the gauze was removed the deep fascia was closed with #1 Vicryl suture. The subcutaneous layer was closed with 2-0 Vicryl. The skin was closed with skin kevon. Patient tolerated the procedure well. There were no complications. The Operation could not have been safely performed without compromising the technical result or length of the procedure, without the assistance of a skilled registered nurse surgical services. The registered nurse surgical services was medically necessary for proper positioning, retraction and manipulation of instruments, proper exposure, surgical preparation, and manipulation of tissue. Complications: none Post-operative Condition: stable Disposition: PACU Plan for aftercare: Admit to inpatient hospital
--- NOTE | 2023-04-01 13:40 | DI.RAD.S_ITS ---
PROCEDURE: XR LUMBAR SPINE 2-3V INDICATIONS: L5-S1 TLIF TECHNIQUE: 2 views of the lumbar spine were acquired. COMPARISON: [facility], CR, XR LUMBAR SPINE MIN 4V, 03/05/2023, 16:04. [facility], CR, XR LUMBAR SPINE MIN 4V, 02/06/2021, 8:30. FINDINGS: Fluoroscopic guidance utilized for a posterior and interbody surgical fusion at L5-S1. IMPRESSION: Fluoroscopic guidance. Dictated by: Lane Palmer M.D. on 04/01/2023 at 14:29 Approved by: Lane Palmer M.D. on 04/01/2023 at 14:30
[2023-04-01] MEDS: fentaNYL 100 MCG/2 ML INJ IV (13:55)
[2023-04-01] MEDS: ONDANSETRON 4 MG/2 ML INJ IV (14:02)
[2023-04-01] MEDS: OXYCODONE IR 5 MG TABLET PO (14:03)
[2023-04-01] MEDS: ACETAMINOPHEN 325 MG TABLET 650 MG PO ×2 (14:55→21:16)
[2023-04-01] MEDS: hydrOXYzine pamoate 25 MG CAPSULE PO ×2 (14:56→21:16)
[2023-04-01] MEDS: OXYCODONE IR 10 MG TABLET PO ×3 (16:40→21:33)
[2023-04-01] MEDS: LACTATED RINGERS 1,000 ML 125 ML IV (17:02)
[2023-04-01] MEDS: DOCUSATE 100 MG CAPSULE PO (21:16)
[2023-04-01] MEDS: SENNOSIDES 8.6 MG TABLET 17.2 MG PO (21:16)
[2023-04-02] VITALS: BP 123/69; PULSE 85; RESP 19; TEMP 36.1; O2SAT 98
[2023-04-02] MEDS: OXYCODONE IR 10 MG TABLET PO ×5 (01:39→15:51)
[2023-04-02] MEDS: hydrOXYzine pamoate 25 MG CAPSULE PO ×2 (01:40→10:03)
[2023-04-02] MEDS: LACTATED RINGERS 1,000 ML 125 ML IV (01:40)
[2023-04-02] MEDS: CEFAZOLIN 2 GM/100 ML PREMIX 100 ML IV (02:52)
[2023-04-02 04:00] VITALS: BP 127/80; PULSE 70; RESP 18; TEMP 36.1; O2SAT 99
[2023-04-02] MEDS: PANTOPRAZOLE DR 20 MG TABLET PO (05:40)
[2023-04-02] MEDS: ACETAMINOPHEN 325 MG TABLET 650 MG PO (05:40)
[2023-04-02 08:03] VITALS: BP 112/63; PULSE 60
[2023-04-02] MEDS: DOCUSATE 100 MG CAPSULE PO (08:03)
[2023-04-02] MEDS: LOSARTAN 50 MG TABLET 100 MG PO (08:03)
[2023-04-02] MEDS: polyethylene glycoL 3350 17 GM POWD.PACK PO (08:05)
[2023-04-02] MEDS: AMLODIPINE 5 MG TABLET PO (08:05)
[2023-04-02] MEDS: hydroCHLOROthiazide 25 MG TABLET 12.5 MG PO (08:05)
--- NOTE | 2023-04-02 08:08 | PM.DS.1 ---
History of Present Illness History of Present Illness Date Patient Seen: 04/02/23 Time Patient Seen: 08:08 Chief complaint: Back pain Narrative: Back pain has been [id number] overnight. Denies fever or chills. No nausea or vomiting. Patient has assistance at home. Discharge Providers Provider Date of admission: 04/01/23 08:58 Discharge Date: 04/02/23 Primary care physician: Marietta Phan PA-C Consults: 04/01/23 14:31 Consult to Occupational Therapy Evaluate & Treat Comment: Physician Instructions: Evaluate and treat Consult to Physical Therapy Evaluate & Treat Comment: Physician Instructions: Evaluate and Treat Discharge provider: Heriberto White PA-C Summary Hospital Course Discharge Diagnosis: 1. L5-S1 post laminectomy syndrome 2. L5-S1 recurrent disc herniation 3. Lumbar radiculopathy Post-op diagnosis: same Hospital Course: 1. L5-S1 Postero-lateral and posterior interbody fusion 2. L5-S1 interbody cage placement. 3. L5-S1 decompressive laminectomy with bilateral facetecomies 4. L5-S1 Posterior non-segmental instrumentation 5. [place] of bone marrow from iliac crest 6. Utilization of microsurgical technique and operating microscope Same procedure as scheduled: Yes Indications: Patient has been having chronic back pain and worsening lumbar radiculopathy.? Patient has a history of L5-S1 right microdiskectomy with recurrent disc herniation and radiculopathy confirmed on recent MRI. Patient failed multiple conservative management with worsening pain weakness and numbness in his lower extremity.? Patient has been having difficulty performing activity of daily living.? After discussing risks benefits of treatment options, patient elected proceed with surgery. Surgeon: Varsha Angeles Cloud Developer: Heriberto White Click Yes if Unassisted: No Anesthesia Type: General Patient admitted to the hospital for the above-mentioned diagnosis. Patient consented to the same. Patient underwent lumbar fusion April 01, 2023. Patient back in his room recovering is in stable condition. Patient will mobilize with physical therapy this morning. Limit bending, twisting, lifting. Multimodal pain management. Discharge home today after physical therapy if safe for home environment. Exam Vital Signs (past 8 hours): - 04/02/23 04:00 04/02/23 08:03 Temperature 97.0 F L Pulse Rate 70 60 Respiratory Rate 18 Blood Pressure 127/80 112/63 Pulse Oximetry 99 Oxygen Delivery Method Room Air Oxygen Flow Rate 0 Narrative Exam Narrative: 57-year-old male resting comfortably in bed in no apparent distress. Motor functions intact bilateral lower extremities. Sensation grossly intact to light touch bilateral lower extremities. Const General: cooperative and comfortable Nutritional Appearance: average body habitus Orientation: alert Resp Effort & Inspection: normal respiratory effort and able to speak in complete sentences [facility] Medical History Facet arthropathy, lumbar Herniated nucleus pulposus, L5-S1, right Hypertension Post-laminectomy syndrome Pre-diabetes Surgical History H/O hernia repair S/P scrotal varicocelectomy Family History Father Diabetes mellitus Mother Cancer Diabetes mellitus Grandmother Congestive heart failure Social History household members: family Smoking Status: Never smoker alcohol intake: current Discharge Assessment & Plan Assessment and Plan Assessment: Patient progressing as expected Plan of Treatment: Multimodal pain management Mobilize with physical therapy, limited bending, twisting, lifting Discharge home today after physical therapy if safe for home environment. Discharge Plan Discharge Plan Patient Disposition: Home Discharge orders & Medications Prescriptions: New acetaminophen 325 mg Tablet 650 mg PO Q6H PRN (Reason: Fever/Mild Pain (1-3)) Qty: 60 0RF docusate sodium 100 mg Capsule 100 mg PO BID Qty: 10 0RF oxycodone 5 mg Tablet 5 mg PO Q3HR PRN (Reason: Pain, Moderate (4-6)) Qty: 60 0RF hydroxyzine pamoate 25 mg Capsule 25 mg PO Q4HR PRN (Reason: Nausea And Vomiting) Qty: 20 0RF Continued losartan 100 mg tablet 100 mg PO DAILY amlodipine 5 mg tablet 5 mg PO DAILY montelukast 10 mg tablet 10 mg PO DAILY PRN (Reason: Allergy Symptoms) hydrochlorothiazide 12.5 mg tablet 12.5 mg PO DAILY omeprazole 20 mg capsule,delayed release(DR/EC) 20 mg PO DAILY Follow up/Referrals: Varsha nAgeles MD [Physician] - As previously scheduled (2 weeks as scheduled) Marietta Phan PA-C [Primary Care Provider] - Diet/Activity/Treatments Diet: Diet as Tolerated Activity: Limit bending, twisting, lifting Cold/Heat Therapy: Apply ice to back as needed Skin/Wound/Dressing Care Report to your healthcare provider any signs of infection, such as:: chills, fever, night sweats, increased pain, unusual drainage and unusual redness Dressing: Keep dressing clean and dry Visit Report/Discharge Packet Instructions: DI for Prescription Opioid Use, DI for Transforaminal Lumbar Interbody Fusion Stand Alone Forms: Patient Portal/API, Stroke Signs & Symptoms, Surgery Discharge Discharge Data Primary Care Provider: Marietta Phan Quality VTE Deep Vein Thrombosis/Pulmonary Embolism Present on Admission: No
--- NOTE | 2023-04-02 08:37 | CM.DANOTE ---
Addendum entered by Maribell Cheema R.N. 04/02/23 15:04: Patient was reluctant to go home, according to nurse. Patient's vitals are stable, was concerned about going home with elderly parents. Reminded nurse to let patient know that this is not a medical reason for him to stay, expecially since this was a planned surgery. Notes also indicate that he has a friend that can stay with him overnight. Patient should be discharging home today. Original Note: DCP: Case received, EMR reviewed and met with patient. Introduced self and role. Was able to obtain information regarding patient's baseline activity level prior to his surgery, as well as his current living situation. DCP assessment completed with information currently available. Patient is a 57 year old male who admitted yesterday morning to the care of the orthopedic team. PCP: Dr. Phan. Payer: confirmed: [facility]. Patient came to the hospital via private vehicle for a surgical procedure. Patient had Postero-lateral and posterior interbody fusion. Patient has history of L5-S1 recurrent disc herniation. Met with patient in his room. He was sitting up in bed having breakfast. Patient is alert, pleasant. Confirmed debbie he resides in [place], lives in same house with his parents. 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 At his baseline, he uses no DME. Stated that he can stay in cottage, one level, with no stairs upon discharge. He will be working with P.T. He also indicated that his father has a walker he can use if he needs it. P: Patient has discharge orders for home, but will depend upon how he does with P.T. Maribell Cheema RN/Entry Level Electrical Engineer Discharge Planning/Care Management CM Discharge Assessment Start: 04/02/23 08:35 Freq: Status: Active Protocol: Document 04/02/23 08:35 (Rec: 04/02/23 08:36 [id number]) Discharge Planning Assessment Assigned Packing Shed Supervisor Maribell Cheema RN/Entry Level Electrical Engineer Advance Directives? No History Provided By Patient,Medical Record Prior Living Arrangements Apartment/Condo Household Members family Type of transporation used prior to Drives own vehicle admit Independent with ADL's Yes Is patient alert and oriented? Yes Caregiver for Another No Barriers to Discharge No Discharge Plan Home Transportation Arrangement Family Referrals Initiated None needed Whiteboard Updated in Patient Room with Yes name and ext. # of Packing Shed Supervisor Review Status In Process Next Review Type Continued Stay Review Pre-Anesthesia Assessment Start: 03/25/23 09:55 Freq: Status: Complete Protocol: Document 03/25/23 09:55 LELIA (Rec: 03/25/23 10:15 LELIA [id number]) Pre-Anesthesia Assessment Preferred Name Mateo Patient Information Reviewed Via Phone Assessment Assessment Completed With Patient H&P Completed Within 30 Days none in chart Diagnostic Results EKG Comment EKG 01/01/23 Primary Care Provider Marietta Phan Seen Specialist in Last 12 Months Yes Specialist Seen Orthopedist Preferred Language [place] Height 5 ft 7 in Weight 179 lb Body Mass Index (BMI) 28.0 Hearing Ability Normal Visual Impairment Partially Limited Visual Assist Contacts,Glasses Dentition Type Teeth, Natural Present Barriers to Learning None Other Aids No Hx Anesthesia Reactions Yes: Woke during surgery x2- felt foot surgery Hx Family Anesthesia Reaction No Hx Malignant Hyperthermia No Hx Blood Transfusions No Hx Blood Transfusion Reaction No Anesthesia Review Requested No Draw Frame Operator No alcohol intake current alcohol intake frequency a few times a month Smoking Status Never smoker Substance Use Type does not use Pain Present Pain Reported Comment Back to right leg Musculoskeletal Symptoms Back Pain History of Falling (Recent or History of No ) Patient is completely paralyzed or No completely immobile Ambulatory Aid None/bed rest/nurse assist Prosthesis or Orthotic Device Cane Gait/Transferring Normal/bedrest/immobile Mental Status Oriented to own ability Is patient on oxygen? No Does patient have YANEZ/SOB No Hx Sleep Apnea No Currently Taking a Beta Brandy No Can You Climb a Flight of Stairs Without Yes SOB Hx Chest Pain No Hx SOB No Hx Syncope or Dizziness No Anti-Coagulant Therapy No Has a Optical Fabrication Technician No Cardiac Testing No Hx Pacemaker/ICD No Pacemaker Rep Required? No Cardiac Clearance Received No Diet Type At Home Regular Dysphagia No Urinary Catheter Present No Hx Urinary Self Catheterization No Diabetes No: Pre-diabetic HgbA1C 6.3 Date 01/01/23 Hx Drug Resistant Organism No Presence of External or Internal Medical No Devices Have you had any close contact with No someone diagnosed with COVID-19? Are you experiencing any of these No symptoms symptoms? Lives With family Support System Parent(s) Does the Patient Have Assistance After Yes Surgery Patient Discharge Plan Description Return Home Feels Safe in Current Environment Yes Been Physically Hurt or Threatened By a No Person in Current Environment Do you have thoughts of harming yourself None or others? Are you currently considering suicide? No Do you have a plan to hurt yourself or No Plan others? Do You Have Any Spiritual Beliefs That No May Affect Your HC Choices? Do You Have Any Cultural Practices That No May Affect Your HC Choices? Who Can We Speak to About Patient's Care Yassine Ramos (friend) Health Care Proxy/Next of Kin Yassine Ramos Health Care Proxy Advance Directives? No PAC Instructions Assistance for 24 hours post- op,Do not shave/clip surgical site,Medications to take/avoid ,Nasal antibiotic,No ETOH/ petroleum product on skin DOS, NPO,Post-op transportation,Pre -surgical wash,Sensory aids, Sturdy shoes/comfortable clothes,Do not bring valuables and remove jewelry
--- NOTE | 2023-04-02 08:50 | PT.IIE ---
Current Diagnoses Spinal stenosis, lumbar region with neurogenic claudication (04/01/23) Postlaminectomy syndrome, not elsewhere classified (04/01/23) Surgery Performed Operation Date: 04/01/23 10:45 Actual Procedures p L5-S1 TLIF - Varsha Angeles MD Surgical History (Last Reviewed 04/02/23 @ 08:10 by Heriberto White PA-C) H/O hernia repair S/P scrotal varicocelectomy Medical History (Last Reviewed 04/02/23 @ 08:10 by Heriberto White PA-C) Facet arthropathy, lumbar Herniated nucleus pulposus, L5-S1, right Hypertension Post-laminectomy syndrome Pre-diabetes Physical Therapy Inpatient Evaluation/Re-Eval M1 PT/OT-IP Prior Functional Status Start: 04/02/23 10:11 Freq: NEEDED Status: Active Protocol: Document 04/02/23 10:14 AB (Rec: 04/02/23 10:39 AB [id number]) Medical Review Prior Functional Status Medical History Reviewed Yes Communication Pt is able to express all needs. Mobility and Gait Pt reports he ambulated without AD prior to surgery. Activities of Daily Living and IADL's IND with all ADLs and IADLs, however had increased LBP since December. Social History Household Members family Living Arrangements House Number of Floors (Floors) 3 or More Floors Number of Stairs To Enter/Railing? no GELACIO Home Environment Standard Height Toilet,Walk in Shower,Bidet Home Equipment Four Wheel Walker,Raised Toilet Seat w/Armrests,Hand Held Shower,Grab Bars In Shower Additional Social History Comment Pt reports he lives with his elderly parents who can assist with basic tasks, though not much physically. He also states he has a friend who will be staying with him overnight and can assist him physically at night. The pt reports he lives on the 3rd floor which has a steep staircase with a alot of steps , but he will be staying in the basement which has a full bathroom and kitchenette, and no steps at all. M1 PT/OT-IP Prior Functional Status Start: 04/02/23 10:14 Freq: NEEDED Status: Active Protocol: Document 04/02/23 10:14 AB (Rec: 04/02/23 10:39 AB [id number]) Medical Review Prior Functional Status Medical History Reviewed Yes Communication Pt is able to express all needs. Mobility and Gait Pt reports he ambulated without AD prior to surgery. Activities of Daily Living and IADL's IND with all ADLs and IADLs, however had increased LBP since December. Social History Household Members family Living Arrangements House Number of Floors (Floors) 3 or More Floors Number of Stairs To Enter/Railing? no GELACIO Home Environment Standard Height Toilet,Walk in Shower,Bidet Home Equipment Four Wheel Walker,Raised Toilet Seat w/Armrests,Hand Held Shower,Grab Bars In Shower Additional Social History Comment Pt reports he lives with his elderly parents who can assist with basic tasks, though not much physically. He also states he has a friend who will be staying with him overnight and can assist him physically at night. The pt reports he lives on the 3rd floor which has a steep staircase with a alot of steps , but he will be staying in the basement which has a full bathroom and kitchenette, and no steps at all. M2 PT-IP Current Condition Start: 04/02/23 10:14 Freq: NEEDED Status: Active Protocol: Document 04/02/23 10:14 AB (Rec: 04/02/23 10:39 AB [id number]) Physical Therapy Current Condition Current Condition Evaluation Date 04/02/23 Treatment Diagnosis s/p lumbar TLIF L5-S1 Onset Date 04/01/23 M3 PT-IP Subjective Start: 04/02/23 10:14 Freq: NEEDED Status: Active Protocol: Document 04/02/23 10:14 AB (Rec: 04/02/23 10:39 AB [id number]) Subjective Physical Therapy Visit Type Type Initial Evaluation Visit Start Time 08:50 Visit Stop Time 09:27 Total Visit Minutes 37 Physical Therapy Visit Comments Patient Comments Pt reports he is having mild pain in his low back, however is agreeable to PT and OT evaluation this morning. Therapy Pain Assessment Pain When Pain Assessed At Rest Pain Present Pain Present Pain Reported Location back Description Spasm,With Movement Pain Behaviors Facial Grimacing,Wincing Pain Management Techniques Re-positioning,Timing of Activity with Medications M4 PT-IP Mobility and Gait Start: 04/02/23 10:14 Freq: NEEDED Status: Active Protocol: Document 04/02/23 10:14 AB (Rec: 04/02/23 10:39 AB [id number]) PT-Bed Mobility Assessment Rolling Type of Rolling Log Rolling Level of Assist Contact Guard Assistance Supine to Sit Supine to Sit Minimal Assistance Sit to Supine Sit to Supine Contact Guard Assistance Scooting Scooting to Edge of Bed Standby Assistance Scooting Up and Down in Bed Standby Assistance PT-Transfer Assessment Sit to and From Stand Sit to and from Stand Standby Assistance,Use of Upper Extremities Equipment Transfer Assistive Device Gait Belt,Front Wheeled Walker Transfers Transfer Destination Bed,Chair Transfer Technique Stand Step Pivot Transfer Ability Level of Assist Standby Assistance,Use of Upper Extremities Comments Mobility Comments Pt's BP in supine is 113/66 mmHg, and rises to 142/77 mmHg in sitting with pt reporting mild dizziness upon sitting. Unable to take BP in standing. Pt reports pain increases to 9-10/10 with log roll and STS. PT left pt with OT for remainder of OT evaluation at conclusion of PT evaluation. Gait Assessment Gait Gait Assistance Required: Standby Assistance Distance (Feet) 75 Assistive Devices Assistive Device Gait Belt,Front Wheeled Walker Gait Deviations General Gait Pattern Decreased Stride Length Factors Limiting Gait Function Factors Limiting Gait Function Decreased Activity Tolerance, Decreased Strength,Limited Range of Motion,Pain Comments Gait Comments Pt requires verbal cues to relax his UEs when ambulating with FWW to avoid tensing muscles, as well as to continue breathing to help relieve his symptoms. Pt ambulates with slow nik and short stride length due to pain level. Of note, the pt reports feeling like he has to rely on FWW for support because he feels that his LLE may give out. Stair Climbing Assessment Comments Stair Climbing Comments Not assessed today due to pain , weakness and fatigue. PT-Balance Assessment Sitting Balance and Reactions Static Sitting Balance Ability Normal Dynamic Sitting Balance Ability Normal Standing Balance and Reactions Static Standing Balance Ability Good Dynamic Standing Balance Ability Fair Device Used FWW M5 PT-IP Objective Assessments Start: 04/02/23 10:14 Freq: NEEDED Status: Active Protocol: Document 04/02/23 10:14 AB (Rec: 04/02/23 10:39 AB [id number]) Orientation Orientation/Cognition Level of Alertness Alert Orientation Name,Age,Birthday,Month,Date, Year,Day of Week,Place, Situation Language Function Ability No Deficits Noted Safety Awareness Understands Safety Issues Memory Description No Deficits Noted Gross Range of Motion Upper Extremity ROM Assessment Within Functional Limits Lower Extremity ROM Assessment Within Functional Limits Strength Upper Extremity Strength Assessment Within Functional Limits Lower Extremity Strength Assessment Within Functional Limits M6 PT-IP Treatment Start: 04/02/23 10:14 Freq: NEEDED Status: Active Protocol: Document 04/02/23 10:14 AB (Rec: 04/02/23 10:39 AB [id number]) Physical Therapy Treatment Education Education Provided Precautions,Post-Op Packet, Safety Brace Education Patient M7 PT-IP Assessment and Plan Start: 04/02/23 10:14 Freq: NEEDED Status: Active Protocol: Document 04/02/23 10:14 AB (Rec: 04/02/23 10:39 AB [id number]) PT Summary Assessment and Plan Potential Rehabilitation Potential Excellent Status of Condition at Evaluation Stable Summary Impairments Pain,ROM,Strength,Balance,Bed Mobility,Transfers,Gait, Activity Tolerance Assessment Summary Mario Ballesteros is a 57 year old male patient who is s/p lumbar TLIF L5-S1 performed on 04/01/23. The pt currently presents with signs and symptoms consistent with this surgical procedure including decreased activity tolerance and endurance deficits, ROM deficits, and pain symptoms. These impairments are limiting the pt's ability to perform functional mobility independently. He currently requires CGA to perform log roll for bed mobility, and SBA for STS, transfers and ambulation, along with minor verbal cues for sequencing and efficiency. Bases on his current level of function, discharge to home with assistance is recommended. Of note, the pt expressed not feeling confident and comfortable discharging to home today and would like to wait to be discharged tomorrow , due to his parents being unable to help him physically. The pt would benefit from skilled PT during his hospitalization in order to help him improve to his highest level of function. The pt may feel more confident and may demonstrate increased independence after PM PT session, therefore discharge disposition should be reassessed then. Goals Bed Mobility Goal Independent Transfer Goal Independent,Front Wheeled Walker Gait Goal Independent,Cane,Front Wheel Walker Gait Distance 150 Other Goals Pt to perform transfers and ambulation with independence and LRAD in order to discharge safely to home, as he will have minimal physical help from his family. Days to Meet Goals 5 Frequency of Treatment Frequency Of Treatment Twice a Day Treatment Plan Physical Therapy Treatment Plan Bed Mobility Training,Transfer Training,Gait Training, Therapeutic Exercise,Balance Retraining,Post Op Education, Discharge Planning,Hot or Cold Pack,Neuromuscular Re-ed, Coordination Retraining,Manual Therapy Precautions Lumbar Precautions Log Roll,No Twisting,Limit Bending,Lifting Restriction of 10 lbs,Gait Belt above Incisional Area Weight Bearing Status Weight Bearing Status Weight Bear as Tolerated Recommendations To Nursing Amount of Assist Needed Standby Assistance Discharge Recommendations PT Discharge Recommendations Home with Assistance, Outpatient PT Other Discharge Recommendations Outpatient PT is recommended after lumbar spine precautions are lifted to improve to his PLOF and improve post operative outcomes. Equipment Needed for Home Before FWW Discharge Transportation Needs at Discharge Private Vehicle
[2023-04-02 08:56] VITALS: BP 112/63; PULSE 58; RESP 18; TEMP 36.2; O2SAT 100
--- NOTE | 2023-04-02 09:43 | OT.IP.EVAL ---
Current Diagnoses Spinal stenosis, lumbar region with neurogenic claudication (04/01/23) Postlaminectomy syndrome, not elsewhere classified (04/01/23) Surgery Performed Operation Date: 04/01/23 10:45 Actual Procedures p L5-S1 TLIF - Varsha Angeles MD Past Medical History (Last Reviewed 04/02/23 @ 08:10 by Heriberto White PA-C) Facet arthropathy, lumbar Herniated nucleus pulposus, L5-S1, right Hypertension Post-laminectomy syndrome Pre-diabetes Surgical History (Last Reviewed 04/02/23 @ 08:10 by Heriberto White PA-C) H/O hernia repair S/P scrotal varicocelectomy Occupational Therapy Inpatient Evaluation/Re-Eval M1 PT/OT-IP Prior Functional Status Start: 04/02/23 10:14 Freq: NEEDED Status: Active Protocol: Document 04/02/23 08:50 [facility] (Rec: 04/02/23 10:33 [facility] [id number]) Medical Review Prior Functional Status Communication Independent Mobility and Gait Pt states had pain while standing and bending. Activities of Daily Living and IADL's Pt not able to do his socks and shoes and had to buy slip on shoes. Pt having to have friend assist him to get things in and out of the kiln for him. Social History Household Members family Living Arrangements Apartment/Condo Number of Floors (Floors) 3 or More Floors Number of Stairs To Enter/Railing? Pt can stay on the ground floor apartment with no steps to enter. Home Environment Standard Height Toilet,Walk in Shower,Bidet Home Equipment Four Wheel Walker,Raised Toilet Seat w/Armrests,Hand Held Shower,Grab Bars In Shower Additional Social History Comment Pt states his dad to install the bidet for him. Pt states also has a toilet paper aid. M2 OT-IP Current Condition Start: 04/02/23 10:11 Freq: Status: Active Protocol: Document 04/02/23 08:50 [facility] (Rec: 04/02/23 10:33 [facility] [id number]) Occupational Therapy Current Condition Current Condition Evaluation Date 04/02/23 Treatment Diagnosis S/P L5-S1 postero-lateral and posterior interbody fusion Diagnosis Onset Date 04/01/23 M3 OT- IP Subjective and Pain Start: 04/02/23 10:11 Freq: Status: Active Protocol: Document 04/02/23 08:50 [facility] (Rec: 04/02/23 10:33 [facility] [id number]) OT- Subjective Occupational Therapy Visit Type Type Initial Evaluation Visit Start Time 08:50 Visit Stop Time 09:43 Total Visit Minutes 53 Occupational Therapy Visit Comments Patient Comments Pt agreed to get up and PT also present for initial evals for the pt. Patient/Caregiver Goals TO go home. OT Pain Assessment Pain When Pain Assessed At Rest Pain Present Pain Present Pain Reported Location back Intensity 6 Scale Used Numeric (0 - 10) M4 OT- IP ADL's Start: 04/02/23 10:11 Freq: Status: Active Protocol: Document 04/02/23 08:50 [facility] (Rec: 04/02/23 10:33 [facility] [id number]) OT GLS-Ylzl-[id number] General Evaluation Self-Feeding Ability Independent OT ADL-Grooming General Evaluation Grooming Ability Independent Areas Needing Assistance Retrieving/Set-up of Grooming Items Comments OT Grooming Comments Able to do while standing at the sink with the FWW. OT ADL-Oral Care General Eval Oral Care Ability Independent Comments Oral Care Comments Educated best to spit into a cup or hinge at his hips to best follow his back precautions. OT ADL-Dressing General Eval Lower Body Dressing Ability Maximum Assistance Areas Needing Assistance Socks Comments OT Dressing Comments Able to educated pt on use of sock aid and assistant secretary for LB dressing needs and pt able to practice. OT ADL-Toileting Comments OT Toileting Comments Pt not having to go at this time. Spoke of use of his bidet at home, but may not be set up yet and has a toilet paper aid he can use. OT ADL-Bathing Comments OT Bathing Comments Pt states it is a small shower stall. Pt will benefit from assist at home. M5 OT- IP IADL's Start: 04/02/23 10:11 Freq: Status: Active Protocol: Document 04/02/23 08:50 [facility] (Rec: 04/02/23 10:33 [facility] [id number]) OT-Instrumental Activities of Daily Living Deficits IADL Deficits Identified Deficits Home Safety Awareness Awareness of Need for Assistance at Home Good Awareness Ability to Problem Solve Emergency Able to Problem Solve Situations Medication Management Medication Management No Deficits Identified Money Management Money Management No Deficits Identified Meal Preparation Meal Preparation Caregiver Provides Assist Internal Audit Manager Internal Audit Manager Caregiver Provides Assist M6 OT- IP Functional Cognition Start: 04/02/23 10:11 Freq: Status: Active Protocol: Document 04/02/23 08:50 [facility] (Rec: 04/02/23 10:33 [facility] [id number]) Cognitive Factors Limiting Selfcare Function Cognitive Ability Level of Alertness Alert Patient Orientation Name,Age,Birthday,Month,Date, Year,Day of Week,Place, Situation Attention Span Ability Capable of Focused Attention, Capable of Sustained Attention Ability to Follow Commands Able to Follow Multi-Step Commands Memory Description No Deficits Noted Cognitive Comments Cognitive Assessment Comments Pt intact and able to follow and incorporate his back precautions for his ADL and mobility needs well. OT- Vision and Hearing OT- Hearing Assessment OT- Hearing Assessment WFL OT- Vision Assessment Visual Acuity Glasses All The Time,Contact Lenses Visual Attentiveness WFL Occular Pursuits WFL Visual Convergence WFL M7 OT- IP Mobility and Balance Start: 04/02/23 10:11 Freq: Status: Active Protocol: Document 04/02/23 08:50 [facility] (Rec: 04/02/23 10:33 [facility] [id number]) OT- Bed Mobility Assessment Supine to Sit Supine to Sit Assist Standby Assistance,Contact Guard Assistance Sit to Supine Sit to Supine Assist Contact Guard Assistance, Minimal Assistance Scooting Scooting to Edge of Bed Standby Assistance OT-Transfer Assessment Sit to and From Stand Sit to and from Stand Standby Assistance,Contact Guard Assistance Transfers Transfer Ability Standby Assistance Technique Transfer Destination Bed,Chair Transfer Technique Stand Step Pivot Devices Transfer Assistive Devices Gait Belt,Front Wheeled Walker Comments Mobility Comments Pt initially FLYNN for his legs back into bed. CGA to SBA to stand and with the FWW. Pt needing cues not to hold his breath and relax his shoulders when up on his feet. Pt has a 4ww but at this time would benefit from a FWW walker as heavily relies on his hands on the FWW. OT- Balance Assessment Sitting Balance and Reactions Static Sitting Balance Ability Normal Dynamic Sitting Balance Ability Good Standing Balance and Reactions Static Standing Balance Ability Good Dynamic Standing Balance Ability Fair M8 OT- IP Objective Assessments Start: 04/02/23 10:11 Freq: Status: Active Protocol: Document 04/02/23 08:50 [facility] (Rec: 04/02/23 10:33 [facility] [id number]) OT Gross Range of Motion Upper Extremity Range of Motion Assessment Within Functional Limits OT Strength Upper Extremity Strength Assessment Within Functional Limits OT-Muscle Tone Assessment Muscle Tone WNL Yes M9 OT- IP Assessment and Plan Start: 04/02/23 10:11 Freq: Status: Active Protocol: Document 04/02/23 08:50 [facility] (Rec: 04/02/23 10:33 [facility] [id number]) OT Summary Assessment and Plan Potential Rehabilitation Potential Excellent Analytic Complexity at Evaluation Low Summary OT Impairments Pain,Balance,Functional Mobility,Dressing,Toileting, Bathing,Toilet Transfers, Shower Transfers,Activity Tolerance Progress Towards Goals Progressing Toward Goals Assessment Summary Pt low complexity and main barriers is pain. Pt lives with his elderly parents per pt can assist but limited. Pt to have a friend assist in the evenings and night. Pt would benefit from more therapy at this time as having to be mostly independent before going home. IN addition pt states his pain is still high 9/10 when moving and 6 at rest . Pt will also benefit from getting a FWW. Pt to go home with assist when medically stable. Goals Dressing Goal Independent Toileting Goal Independent Bathing Goal Independent Toilet Transfer Goal Independent Shower Transfer Goal Independent Days to Meet Goals 5 Frequency of Treatment Frequency Of Treatment Once a Day Treatment Plan OT Treatment Plan ADL Training,Functional Mobility,Vision Retraining, Discharge Planning Discharge Recommendations OT Discharge Recommendations Home with Assistance Home Equipment Needs FWW Transportation Needs at Discharge Private Vehicle
[2023-04-02 12:00] VITALS: BP 100/63; PULSE 68; RESP 18; TEMP 36.3; O2SAT 100
--- NOTE | 2023-04-02 14:10 | PT.IPTN ---
Current Diagnoses Spinal stenosis, lumbar region with neurogenic claudication (04/01/23) Postlaminectomy syndrome, not elsewhere classified (04/01/23) Surgery Performed Operation Date: 04/01/23 10:45 Actual Procedures p L5-S1 TLIF - Varsha Angeles MD Physical Therapy Treatment Note M2 PT-IP Current Condition Start: 04/02/23 10:14 Freq: NEEDED Status: Active Protocol: Document 04/02/23 10:14 AB (Rec: 04/02/23 10:39 AB [id number]) Physical Therapy Current Condition Current Condition Evaluation Date 04/02/23 Treatment Diagnosis s/p lumbar TLIF L5-S1 Onset Date 04/01/23 M3 PT-IP Subjective Start: 04/02/23 10:14 Freq: NEEDED Status: Active Protocol: Document 04/02/23 14:33 TS (Rec: 04/02/23 14:58 TS [id number]) Subjective Physical Therapy Visit Type Type Treatment Note Visit Start Time 14:10 Visit Stop Time 14:31 Total Visit Minutes 21 Number of [employer] Visits 1 Physical Therapy Visit Comments Patient Comments Pt found resting in bed, reports he would like to stay one more night and his pain is 8/10. Pt is agreeable to PT. Therapy Pain Assessment Pain When Pain Assessed At Rest Pain Present Pain Present Pain Reported Location back Intensity 8 Scale Used Numeric (0 - 10) Description Spasm,With Movement Pain Behaviors Facial Grimacing,Wincing Pain Management Techniques Apply Cold,Re-positioning, Timing of Activity with Medications M4 PT-IP Mobility and Gait Start: 04/02/23 10:14 Freq: NEEDED Status: Active Protocol: Document 04/02/23 14:33 TS (Rec: 04/02/23 14:58 TS [id number]) PT-Bed Mobility Assessment Rolling Type of Rolling Log Rolling Level of Assist Standby Assistance Supine to Sit Supine to Sit Standby Assistance Scooting Scooting to Edge of Bed Standby Assistance PT-Transfer Assessment Sit to and From Stand Sit to and from Stand Standby Assistance,Use of Upper Extremities Equipment Transfer Assistive Device Gait Belt,Front Wheeled Walker Comments Mobility Comments Pt performed logroll SBA with use of handrail, demonstrated good carryover. Supine to sit SBA with BUE support, he maintained good awareness of spinal precautions. Sit to stand from bed w/FWW SBA, pt had good standing balance with no retroleaning. He progressed gait to ~200' SBA w /FWW and an emerging step thru gait. Pt uses heavy UE assist on FWW, c/o increasing spasms in LEs making him feel unsteady. Pt did not have have any buckling or LOB. Pt ambulated back to chair in room, ice applied to surgical area. Pt was left in chair with all needs met. Gait Assessment Gait Gait Assistance Required: Standby Assistance Distance (Feet) 200 Assistive Devices Assistive Device Gait Belt,Front Wheeled Walker Gait Deviations General Gait Pattern Decreased Stride Length Factors Limiting Gait Function Factors Limiting Gait Function Decreased Activity Tolerance, Decreased Strength,Limited Range of Motion,Pain Comments Gait Comments See mobility comments. Stair Climbing Assessment Comments Stair Climbing Comments no steps PT-Balance Assessment Sitting Balance and Reactions Static Sitting Balance Ability Normal Dynamic Sitting Balance Ability Normal Standing Balance and Reactions Static Standing Balance Ability Good Dynamic Standing Balance Ability Fair Device Used FWW M5 PT-IP Objective Assessments Start: 04/02/23 10:14 Freq: NEEDED Status: Active Protocol: Document 04/02/23 10:14 AB (Rec: 04/02/23 10:39 AB [id number]) Orientation Orientation/Cognition Level of Alertness Alert Orientation Name,Age,Birthday,Month,Date, Year,Day of Week,Place, Situation Language Function Ability No Deficits Noted Safety Awareness Understands Safety Issues Memory Description No Deficits Noted Gross Range of Motion Upper Extremity ROM Assessment Within Functional Limits Lower Extremity ROM Assessment Within Functional Limits Strength Upper Extremity Strength Assessment Within Functional Limits Lower Extremity Strength Assessment Within Functional Limits M6 PT-IP Treatment Start: 04/02/23 10:14 Freq: NEEDED Status: Active Protocol: Document 04/02/23 14:33 TS (Rec: 04/02/23 14:58 TS [id number]) Physical Therapy Treatment Education Education Provided Precautions,Post-Op Packet, Safety Brace Education Patient M7 PT-IP Assessment and Plan Start: 04/02/23 10:14 Freq: NEEDED Status: Active Protocol: Document 04/02/23 14:33 TS (Rec: 04/02/23 14:58 TS [id number]) PT Summary Assessment and Plan Potential Rehabilitation Potential Excellent Summary Impairments Pain,ROM,Strength,Balance,Bed Mobility,Transfers,Gait, Activity Tolerance Progress Towards Goals Progressing Toward Goals Assessment Summary Mateo is making good progress with his mobility. He is SBA for logroll and supine to sit. He demonstrates good carryover of bed mobility sequencing. He progressed his gait to ~200' SBA w/FWW. He tends to use heavy UE assist on FWW due to spasms in LEs with gait. He does not have any buckling or LOB. PT is recommending return home w/ assist. He has a friend that can assist him overnight and elderly parents who can help during day but not with any physical assist. Pt would like to stay one more night. Goals Bed Mobility Goal Independent Transfer Goal Independent,Front Wheeled Walker Gait Goal Independent,Cane,Front Wheel Walker Gait Distance 150 Other Goals Pt to perform transfers and ambulation with independence and LRAD in order to discharge safely to home, as he will have minimal physical help from his family. Days to Meet Goals 5 Frequency of Treatment Frequency Of Treatment Twice a Day Treatment Plan Physical Therapy Treatment Plan Bed Mobility Training,Transfer Training,Gait Training, Therapeutic Exercise,Balance Retraining,Post Op Education, Discharge Planning,Hot or Cold Pack,Neuromuscular Re-ed, Coordination Retraining,Manual Therapy Precautions Lumbar Precautions Log Roll,No Twisting,Limit Bending,Lifting Restriction of 10 lbs,Gait Belt above Incisional Area Weight Bearing Status Weight Bearing Status Weight Bear as Tolerated Recommendations To Nursing Amount of Assist Needed 1 Person Assist Discharge Recommendations PT Discharge Recommendations Home with Assistance, Outpatient PT Other Discharge Recommendations Outpatient PT is recommended after lumbar spine precautions are lifted to improve to his PLOF and improve post operative outcomes. Equipment Needed for Home Before Has FWW. Discharge Transportation Needs at Discharge Private Vehicle
== END 2023-04-02 15:53 | disposition home or self-care (01) | DRG 455 ==
PROVIDERS: Admitting Provider Orthopaedic Surgery Orthopaedic Surgery of the Spine; PCP Physician Assistant; Referring Provider Orthopaedic Surgery Orthopaedic Surgery of the Spine; Visit Provider Orthopaedic Surgery Orthopaedic Surgery of the Spine
PROC: 0SG30AJ Fusion of Lumbosacral Joint with Interbody Fusion Device, Posterior Approach, Anterior Column, Open Approach (ICD-10-PCS; principal; 2023-04-01 10:45)
DX: M96.1 Postlaminectomy syndrome, not elsewhere classified (principal); M51.27 Other intervertebral disc displacement, lumbosacral region; I10 Essential (primary) hypertension
CPT/HCPCS: 72100; 76000; 97161; 97165; 97530; 97535; C1831; J0131; J0690; J1100; J1170; J2310; J2405; J2704; J3010